=== PATIENT | male | born 1945 | race Caucasian/White ===

== ENCOUNTER 2017-06-23 19:37 | Inpatient (IN) | payer MEDICARE ==
[2017-06-23 20:42] LABS: Prothrombin Time 13.6 SEC (12.0-14.7)
[2017-06-23 21:05] LABS: CKMB 3.3 ng/mL (0-6.6); Troponin I 0.202 ng/mL (< 0.028)
[2017-06-23] MEDS ORDERED: Ondansetron HCl/PF 4 MG/2 ML Vial IVP PRN ×2 (21:47→23:23)
[2017-06-23] MEDS ORDERED: Ondansetron ODT 4 MG TAB SL PRN (21:47)
[2017-06-23] MEDS ORDERED: Acetaminophen 325 MG TAB PO PRN (21:47)
[2017-06-23 22:36] VITALS: BMI 31.6
[2017-06-23] MEDS ORDERED: Acetaminophen 500 MG TAB PO PRN (23:23)
[2017-06-23] MEDS ORDERED: Ondansetron ODT 4 MG TAB PO PRN (23:23)
[2017-06-23] MEDS ORDERED: hydrALAZINE 20 MG/ML VIAL SLOW IVP PRN (23:23)
[2017-06-23] MEDS ORDERED: cloNIDine 0.1 MG TAB PO PRN (23:23)
[2017-06-23 23:43] LABS: Troponin I 0.273 ng/mL (< 0.028)
--- NOTE | 2017-06-24 01:44 | HP ---
PRIMARY CARE PROVIDER: Epifanio Mcleod M.D. CHIEF COMPLAINT: Shortness of breath and chest pain. HISTORY OF PRESENT ILLNESS: This is a 72-year-old male who presented to [facility] after initially presenting to the emergency room with shortness of breath that began in the afternoon on 11/07/20142017. The patient states he had intermittent episodes of chest pain a nd shortness of breath pausing his activity resting with eventual resolution. The patient states he has noticed these episodes over the last 24-48 hours, usually resting relieving his symptoms. The pa tient states in the last 24 hours, he had excruciating pain between his shoulder blades causing him t o stop his activities. The patient states he has been fairly sedentary, using a computer and sitting for many hours during the day. The patient denied any recent travel history, trauma, injury or rece nt surgeries. The patient does admit to bilateral lower extremity edema which is chronic; however, h e has had minimal response to his chronic Lasix therapy with the right lower extremity being larger t mahoney the left lower extremity. Patient admits to remote history of pulmonary embolus after knee surge ry in the , treated with Coumadin for approximately 1 year. The patient denies any recent walker e to his activity level other than less activity and more sitting or doing computer work. Patient de nies current smoking, quitting tobacco use in the . The patient did admit to a central chest pr essure and pain causing him to look up his symptoms on the Internet concerning him for possible heart attack. The patient presented to the emergency room and denied taking any home medications for reli ef. Patient states he underwent left heart catheterization approximately 3 years prior to this evalu ation showing a 40% blockage in the obtuse marginal branch. The patient states he was medically vanessa ged and has been compliant with his medication regimen. In the emergency room, patient underwent CT angiogram of the chest showing bilateral pulmonary embolus with large embolus with near-complete obst ruction to the left lower lobe and portions of the left upper lobe. Multiple right lower lobe emboli noted. The patient received Lovenox 1 mg/kg subcutaneously in the Emergency Room and was transferre d to [facility] for further evaluation. PAST MEDICAL HISTORY: 1. History of angioedema secondary to XIOMARA inhibitors, resolved. 2. Obstructive sleep apnea. 3. Remote tobacco use. 4. Hyperlipidemia. 5. Hypertension. 6. History of gout. 7. Question of asthma. 8. Coronary artery disease with mild 40% obtuse marginal 1 occlusion. 9. Chronic lower extremity edema. PAST SURGICAL HISTORY: 1. Status post bilateral shoulder repair. 2. Status post left knee arthroscopy. 3. Status post cardiac catheterization. 4. Status post vein stripping of the left lower extremity. 5. Status post bursectomy of the right elbow with associated Staphylococcus infection. CURRENT MEDICATIONS: 1. Ventolin HFA 2 puffs inhaled q.4-6 hours p.r.n. 2. Allopurinol 100 mg 1 tab p.o. daily. 3. Norvasc 5 mg 1 tablet p.o. daily. 4. Aspirin 325 mg one tablet p.o. daily. 5. Lipitor 20 mg one tablet p.o. daily. 6. Pepcid 20 mg p.o. b.i.d. 7. Lasix 40 mg p.o. b.i.d. 8. Plaquenil 200 mg p.o. b.i.d. ALLERGIES: XIOMARA INHIBITORS and ARBs. FAMILY HISTORY: Mother with Alzheimer's dementia. SOCIAL HISTORY: Patient resides in [place], [place]. Works part-time at a liquor store. Drinks up t o 5 alcoholic beverages daily. No current tobacco or illicit drug use. REVIEW OF SYSTEMS: The following complete review of systems was negative, unless otherwise mentioned in the HPI or below: Constitutional: Weight loss or gain, ability to conduct usual activities. Skin: Rash, itching. Eyes: Double vision, pain. ENT/Mouth: Nose bleeding, neck stiffness, pain, tenderness. Cardiovascular: Palpitations, dyspnea on exertion, orthopnea. Respiratory: Shortness of breath, wheezing, cough, hemoptysis, fever or night sweats. Gastrointestinal: Poor appetite, abdominal pain, heartburn, nausea, vomiting, constipation, or diarr hea. Genitourinary: Urgency, frequency, dysuria, nocturia. Musculoskeletal: Pain, swelling. Neurologic/Psychiatric: Anxiety, depression. Allergy/Immunologic: Skin rash, bleeding tendency. Otherwise negative except as stated per HPI. PHYSICAL EXAMINATION: VITAL SIGNS: On admission, blood pressure 138/84, pulse 119, temperature 97.5 degrees Fahrenheit, re spiratory rate 20, O2 saturation 97% on 3 liters per minute by nasal cannula. GENERAL APPEARANCE: This is a 72-year-old female, alert and oriented x3, pleasant, in no a cute distress. HEENT: Pupils are equal, round, and reactive to light and accommodation. Extraocular muscles are in tact. No scleral icterus, no conjunctival injection. Nares patent. OP is clear. Teeth in fair rep air. NECK: Supple, no cervical adenopathy, no thyromegaly, no carotid bruits, no JVD appreciated. Cervic al spine with full active and passive range of motion. CHEST: Lungs are clear to auscultation bilaterally. CARDIOVASCULAR: S1, S2 with distant heart sounds. ABDOMEN: Obese, soft, nontender, nondistended. Bowel sounds are positive in all four quadrants. Th ere is no hepatosplenomegaly, no abdominal bruits, no rebound or guarding appreciated. EXTREMITIES: Bilateral pitting edema to the proximal shins. Pulses palpable distally at the dorsali s pedis, posterior tibial, and popliteal arteries bilaterally. Capillary refill less than 2 seconds. No calf tenderness elicited. No palpable cords. NEUROLOGIC: Cranial nerves II-XII are grossly intact. No focal or lateralizing signs appreciated. PERTINENT LABORATORY AND X-RAY FINDINGS: Sodium 141, potassium 3.7, chloride 100, CO2 of 24, anion g ap 21, BUN 28, creatinine 1.23 with estimated GFR 58, glucose 106, calcium 10.3, AST 38, ALT of 25, a lkaline phosphatase 114, troponin I ranged between 0.073-0.202. BNP 47. CBC showed a white blood ce ll count of 8.5, hemoglobin 14, hematocrit 42, platelet count 228 with 71% neutrophils. PT 13.6, INR 1.0, PTT 35.0. Portable chest x-ray dated 06/23/2017 showed cardiomegaly without acute process. CT angiogram of the chest dated 06/23/2017 showed pulmonary emboli bilaterally with large embolus with near-complete obstruction to the left upper and lower lobe. Right lower lobe emboli noted. EKG date d 06/23/2017 by my interpretation shows sinus mechanism with heart rates in the 90s. R-wave progress ion noted in the precordial leads. ST-T wave changes noted in leads V3 through V6. Right bundle-bra nch block pattern favored. ASSESSMENT: 1. Acute/subacute bilateral pulmonary emboli. The patient will be admitted to the telemetry unit. We will continue Lovenox 1 mg/kg subcutaneously q.12 hours. We will obtain 2D transthoracic echocard iogram for valvular function and to assess for intracardiac thrombus. Check bilateral lower extremit y venous Doppler study to rule out thrombus. Continue oxygen supplementation to maintain O2 saturati ons greater than or equal to 90%. 2. Elevated troponin I. Suspect secondarily to #1. No current evidence to suggest acute coronary s yndrome. Continue serial monitoring. 3. Chronic kidney disease stage 2. Avoid nephrotoxic agents and CONTRAST MEDIA. Repeat creatinine in the a.m. 4. Hypertension. We will resume home antihypertensive regimen and monitor clinical response. 5. Coronary artery disease. Chronic and stable. Resume home regimen to include aspirin. Resume Li pitor 20 mg p.o. daily. 6. Prophylaxis. Sequential compression devices while in bed. Pepcid 20 mg p.o. b.i.d. 7. Code status is FULL. Surrogate medical decision maker is King Queen.
[2017-06-24 05:44] LABS: ALT (SGPT) 20 U/L (8-55); AST (SGOT) 27 U/L (5-34); Albumin 3.7 g/dL (3.4-4.8); Alkaline Phosphatase 95 U/L (40-150); Anion Gap 14 mmol/L (10-20); BUN (Urea Nitrogen) 23 mg/dL (8.4-25.7); Bilirubin, Total 0.6 mg/dL (0.2-1.2); Calc. Creatinine Clearance 104 mL/min (70-130); Calcium 10.1 mg/dL (7.8-10.44); Carbon Dioxide 26 mmol/L (23-31); Chloride 104 mmol/L (98-107); Estimated GFR-MDRD 72; Globulin 2.9 g/dL (2.4-3.5); Glucose 94 mg/dL (83-110); Potassium 3.9 mmol/L (3.5-5.1); Protein, Total 6.6 g/dL (5.8-8.1); Sodium 140 mmol/L (136-145)
[2017-06-24 06:05] LABS: Band 1 % (5-11); Eosinophils 4 % (0-10); Hemoglobin 12.4 g/dL (14.0-18.0); Lymphocytes 15 % (21-51); MDiff Complete? YES; Macrocytosis SLIGHT = 6-15 cells (100X) (0-5/hpf); Mean Corpuscular HGB CONC 32.9 g/dL (32.0-36.0); Mean Corpuscular Hemoglobin 31.5 pg (27.0-31.0); Mean Corpuscular Volume 95.6 fl (80.0-94.0); Mean Platelet Volume 7.1 fL (7.4-10.4); Monocytes 12 % (0-10); Neutrophil 68 % (42-75); PLT Morphology Comment Appears Adequate; Platelet Count 218 thou/uL (130-400); RBC Distribution Width 13.4 % (11.5-14.5); Red Blood Cell (RBC) Count 3.93 mill/uL (4.70-6.10); White Blood Cell (WBC) Count 5.5 thou/uL (4.8-10.8)
[2017-06-24] MEDS ORDERED: Loperamide HCl 2 MG CAP PO PRN (07:39)
[2017-06-24] MEDS ORDERED: Diabetic Tussin 200 MG/10 ML UDCUP PO PRN (07:39)
[2017-06-24] MEDS ORDERED: Eucerin (Mineral Oil/Petrolatum,White) 30 gm Jar TOP PRN (07:39)
[2017-06-24] MEDS ORDERED: Artificial Tears 18 DROP/0.9 ML EA EYE PRN (07:39)
[2017-06-24] MEDS ORDERED: Mag-Al 1200 mg/1200 mg/30 ML UDCUP PO PRN (07:39)
[2017-06-24] MEDS ORDERED: Chloraseptic Spray 180 ml Bottle PO PRN (07:39)
[2017-06-24] MEDS ORDERED: HYDROcodone/Acetaminophen 5/325 mg Tablet PO PRN (07:39)
[2017-06-24] MEDS ORDERED: Milk Of Magnesia 30 ML UDCUP PO PRN (07:39)
[2017-06-24] MEDS ORDERED: Loratadine 10 MG TAB PO PRN (07:39)
[2017-06-24] MEDS ORDERED: Sodium Chloride 0.65% Nasal 44 ML BOT EA NARE PRN (07:39)
[2017-06-24] MEDS ORDERED: Senokot 8.6 MG TAB PO PRN (07:39)
[2017-06-24] MEDS ORDERED: Calcium Carbonate 500 MG ChewTAB PO PRN (07:39)
[2017-06-24] MEDS: Atorvastatin Calcium 20 MG TAB PO SCH (08:42)
[2017-06-24] MEDS: Leflunomide 10 mg Tablet PO SCH (08:42)
[2017-06-24] MEDS: Famotidine 20 MG TAB PO SCH ×2 (08:43→21:40)
[2017-06-24] MEDS: Hydroxychloroquine Sulfate 200 MG TAB PO SCH ×2 (08:43→21:40)
[2017-06-24] MEDS: Allopurinol 100 MG TAB PO SCH (08:43)
[2017-06-24] MEDS ORDERED: Enoxaparin Sodium 120 MG/0.8 ML SYRINGE SC SCH (09:00)
[2017-06-24] MEDS ORDERED: FLU VACC TS2017-18 (>65YR) 0.5 ML SYRINGE IM ONE (09:00)
--- NOTE | 2017-06-24 09:37 | PDOC.PN ---
- Subjective Encounter Start Date: 06/24/17 Encounter Start Time: 08:00 -: old records requested/rev Patient seen and examined. No new complaints. No overnight events - Objective Resuscitation Status: Resuscitation Status FULL:Full Resuscitation MAR Reviewed: Yes Vital Signs & Weight: Vital Signs (12 hours) Temp Pulse Resp BP Pulse Ox 06/24/17 07:45 97.8 F 87 18 100 06/24/17 07:38 97.8 F 87 18 153/94 H 100 06/24/17 04:00 97.7 F 86 14 126/74 100 06/23/17 23:30 98.1 F 99 18 106/66 99 06/23/17 23:23 99 06/23/17 22:35 97.5 F L 119 H 20 97 06/23/17 22:10 97.5 F L 119 H 20 138/84 97 Weight Weight 246 lb 14.4 oz I&O: 06/23/17 06/24/17 06/25/17 06:59 06:59 06:59 Intake Total 480 Output Total 350 Balance 130 Result Diagrams: 06/24/17 04:38 06/24/17 04:38 Radiology Reviewed by me: Yes (CT angio, US leg) EKG Reviewed by me: Yes Phys Exam - Physical Examination Constitutional: NAD HEENT: PERRLA, moist MMs, sclera anicteric Neck: no JVD, supple Respiratory: no wheezing, no rales, no rhonchi Cardiovascular: RRR, no significant murmur, no rub Gastrointestinal: soft, non-tender, no distention, positive bowel sounds obesity+ Musculoskeletal: no edema, pulses present Neurological: non-focal, normal sensation, moves all 4 limbs Lymphatic: no nodes Psychiatric: normal affect, A&O x 3 Skin: no rash, normal turgor Dx/Plan (1) Acute respiratory failure with hypoxia Code(s): J96.01 - ACUTE RESPIRATORY FAILURE WITH HYPOXIA Status: Acute (2) Bilateral pulmonary embolism Code(s): I26.99 - OTHER PULMONARY EMBOLISM WITHOUT ACUTE COR PULMONALE Status : Acute (3) Elevated troponin I level Code(s): R74.8 - ABNORMAL LEVELS OF OTHER SERUM ENZYMES Status: Acute Comment: (4) Asthma Code(s): J45.909 - UNSPECIFIED ASTHMA, UNCOMPLICATED Status: Chronic (5) CAD (coronary artery disease) Code(s): I25.10 - ATHSCL HEART DISEASE OF [place] CORONARY ARTERY W/O ANG PCTRS Status: Chronic (6) Dyslipidemia Code(s): E78.5 - HYPERLIPIDEMIA, UNSPECIFIED Status: Chronic (7) Gout Code(s): M10.9 - GOUT, UNSPECIFIED Status: Chronic (8) HTN (hypertension) Code(s): I10 - ESSENTIAL (PRIMARY) HYPERTENSION Status: Chronic Qualifiers: Comment: Follow serial trend after extubation, no XIOMARA/ARB's (9) NOAH (obstructive sleep apnea) Code(s): G47.33 - OBSTRUCTIVE SLEEP APNEA (ADULT) (PEDIATRIC) Status: Chronic (10) Obesity (BMI 30.0-34.9) Code(s): E66.9 - OBESITY, UNSPECIFIED Status: Chronic - Plan cont current plan of care * US leg to rule out DVT * echo * pulmonary consulted * continue lovenox * add warfarin * as pt has previous history of DVT and PE, he will need lifelong anticoagulation * monitor H & H, platelet, PT, INR * medication reviewed as below * symptomatic treatment. Review of Systems - Review of Systems Constitutional: negative: fever, chills, sweats, weakness, malaise, other ENT: negative: Ear Pain, Ear Discharge, Nose Pain, Nose Discharge, Nose Congestion, Mouth Pain, Mouth Swelling, Throat Pain, Throat Swelling, Other Respiratory: negative: Cough, Dry, Shortness of Breath, Hemoptysis, SOB with Excertion, Pleuritic Pain, Sputum, Wheezing Cardiovascular: negative: chest pain, palpitations, orthopnea, paroxysmal nocturnal dyspnea, edema, light headedness, other Gastrointestinal: negative: Nausea, Vomiting, Abdominal Pain, Diarrhea, Constipation, Melena, Hematochezia, Other Genitourinary: negative: Dysuria, Frequency, Incontinence, Hematuria, Retention , Other Musculoskeletal: negative: Neck Pain, Shoulder Pain, Arm Pain, Back Pain, Hand Pain, Leg Pain, Foot Pain, Other Skin: negative: Rash, Lesions, Octavio, Bruising, Other - Medications/Allergies Allergies/Adverse Reactions: Allergies Allergy/AdvReac Type Severity Reaction Status Date / Time XIOMARA Inhibitors Allergy Severe Verified 06/24/17 03:00 ARB-Angiotensin Receptor Allergy Severe Verified 06/24/17 03:00 Antagonist Medications: Current Medications Acetaminophen (Tylenol) 650 mg PO Q4H PRN PRN Reason: Headache/Fever or Mild Pain Hydrocodone Bitart/Acetaminophen ([place] 5/325) 1 tab PO Q4H PRN PRN Reason: Moderate Pain (4-6) Al Hydroxide/Mg Hydroxide (Maalox) 15 ml PO Q4H PRN PRN Reason: Heartburn or Indigestion Albuterol/Ipratropium (Duoneb) 3 ml NEB Q6H PRN PRN Reason: SOB &/or Wheezing Allopurinol (Zyloprim) 100 mg PO DAILY [facility] Last Admin: 06/24/17 08:43 Dose: 100 mg Artificial Tears (Tears Naturale) 0 drop EA EYE PRN PRN PRN Reason: Dry Eyes Atorvastatin Calcium (Lipitor) 20 mg PO DAILY [facility] Last Admin: 06/24/17 08:42 Dose: 20 mg Calcium Carbonate (Tums) 1,000 mg PO Q4H PRN PRN Reason: Heartburn or Indigestion Clonidine (Catapres) 0.1 mg PO Q4H PRN PRN Reason: Systolic BP > 180 Enoxaparin Sodium (Lovenox) 110 mg SC 0900,2100 [facility] Last Admin: 06/24/17 08:42 Dose: 110 mg Famotidine (Pepcid) 20 mg PO BID [facility] Last Admin: 06/24/17 08:43 Dose: 20 mg Guaifenesin (Robitussin Sf) 200 mg PO Q4H PRN PRN Reason: Cough Hydralazine HCl (Apresoline) 10 mg SLOW IVP Q4H PRN PRN Reason: Systolic BP > 180 Hydroxychloroquine Sulfate (Plaquenil) 200 mg PO BID [facility] Last Admin: 06/24/17 08:43 Dose: 200 mg Leflunomide (Arava) 20 mg PO DAILY [facility] Last Admin: 06/24/17 08:42 Dose: 20 mg Loperamide HCl (Imodium) 2 mg PO PRN PRN PRN Reason: Diarrhea/Loose Stools Loratadine (Claritin) 10 mg PO DAILYPRN PRN PRN Reason: Sinus Symptoms Magnesium Hydroxide (Milk Of Magnesium) 30 ml PO DAILYPRN PRN PRN Reason: Constipation Mineral Oil/White Petrolatum (Eucerin Cream) 0 gm TOP BIDPRN PRN PRN Reason: Dry Skin Mometasone Furoate (Asmanex Twisthaler) 1 puff INH 1830 JACINTO Ondansetron HCl (Zofran Odt) 4 mg PO Q6H PRN PRN Reason: Nausea/Vomiting Ondansetron HCl (Zofran) 4 mg IVP Q6H PRN PRN Reason: Nausea/Vomiting Phenol (Chloraseptic [place] 180 Ml Bot) 0 ml PO PRN PRN PRN Reason: Sore Throat Senna (Senokot) 2 tab PO HSPRN PRN PRN Reason: Constipation Sodium Chloride (Flush - Normal Saline) 10 ml IVF Q12HR [facility] Last Admin: 06/24/17 08:43 Dose: 10 ml Sodium Chloride (Flush - Normal Saline) 10 ml IVF PRN PRN PRN Reason: Saline Flush Sodium Chloride ([place] Nasal [place] 0.65%) 0 ml EA NARE QIDPRN PRN PRN Reason: Nasal Congestion Temazepam (Restoril) 15 mg PO HSPRN PRN PRN Reason: Insomnia Warfarin Sodium (Coumadin) 5 mg PO 1700 JACINTO
--- NOTE | 2017-06-24 09:42 | ULT ---
PRELIMINARY REPORT/[facility]/EMERGENCY AFTER HOURS PROCEDURE: EXAM: US Duplex Bilateral Lower Extremity Veins EXAM DATE/TIME: Exam ordered 06/24/2017 5:33 AM CLINICAL HISTORY: 72 years old, male; Signs and symptoms; Edema, localized; Lower extremity, bilateral; Patient HX: Dx: Pe, ble edema TECHNIQUE: Real-time ultrasound scan of the veins of the bilateral lower extremities with color Doppler flow, sp ectral waveform analysis and compression. COMPARISON: No relevant prior studies available. FINDINGS: Right deep veins: There is non-compressive clot within the distal RIGHT femoral vein and popliteal ve in with nearly absent flow on color Doppler and no augmentation. No DVT in the right common femoral, proximal and mid femoral veins. Calf veins are patent. Right superficial veins: No thrombus in the visualized right great saphenous vein. Left deep veins: Normal. No DVT in the left common femoral, femoral, proximal deep femoral, popliteal or calf veins. The veins demonstrate normal color flow, are normally compressible, with normal phasi c flow and/or augmentation response. Left superficial veins: Normal. No thrombus in the visualized left great saphenous vein. Soft tissues: There is swelling of the RIGHT lower extremity. No popliteal cyst. Other findings: Calf veins on the RIGHT are compressible and demonstrate flow. IMPRESSION: 1. Distal RIGHT femoral vein and popliteal vein DVT as above. 2. No LEFT DVT. Thank you for allowing us to participate in the care of your patient. Dictated and Authenticated by: Carlos Parekh MD 06/24/2017 6:30 AM Central Time ([place] & [place]) FINAL REPORT BILATERAL LOWER EXTREMITY VENOUS DUPLEX SONOGRAM: DATE: 06/24/17. TIME: 0535 hours. HISTORY: Bilateral leg pain and edema. FINDINGS: The findings agree with the preliminary report by Dr. Parekh from [facility]. Thrombus with n oncompressibility involves the right femoral and popliteal veins. Nurse Vince was notified by the senior partner at the time of the exam. POS: ALEXX
[2017-06-24] MEDS: Acetaminophen 325 MG TAB PO PRN ×2 (10:50→22:02)
--- NOTE | 2017-06-24 14:39 | CON ---
DATE OF CONSULTATION: 06/24/2017 CONSULTING PHYSICIAN: Hospitalist group. REASON FOR CONSULTATION: Pulmonary embolism. HISTORY OF PRESENT ILLNESS: Mr. Farley is a 72-year-old male who presented to the emergency room last night with a presyncopal type episode after bending over a couple times at his home. He has been fe eling different for the last couple of weeks, stating that he has had a sensation between his scapula . He had been doing fine yesterday morning. He then bent over and felt like he was going to pass ou t. He then researched on [employer] and thought that he was having a heart attack and subsequently prese nted to the hospital. The information that I have is obtained from talking with the patient and tal rahman notes. The patient underwent CT pulmonary angiogram, which showed bilateral severe pulmonary emboli. He was not hypotensive. He has been placed on anticoagulation. The patient had a history of DVT and pulmonary embolism back in the 1969 for which he took Coumadin f or 1 year. PAST MEDICAL HISTORY: 1. Angioedema. 2. DVT/PE. 3. Obstructive sleep apnea. 4. Chronic obstructive pulmonary disease. 5. Hypertension. 6. Gout. 7. Coronary artery disease. 8. Lower extremity edema. PAST SURGICAL HISTORY: 1. Bilateral shoulder repair. 2. Arthroscopy. 3. Cardiac catheterization. 4. Vein stripping left lower extremity. MEDICATIONS PRIOR TO ADMISSION: Ventolin, allopurinol, Norvasc, aspirin, Lipitor, Pepcid, Lasix, Rob quenil. ALLERGIES: XIOMARA INHIBITORS and ANGIOTENSIN RECEPTOR BLOCKERS. FAMILY MEDICAL HISTORY: Remarkable for Alzheimer's disease. SOCIAL HISTORY: He smoked up until 1986. Drinks up to 5 alcoholic beverages daily. He lives near [facility]. He is retired from car dealership. REVIEW OF SYSTEMS: Twelve point review of systems is negative expect from that mentioned in history of present illness. PHYSICAL EXAMINATION: VITAL SIGNS: Temperature 97.8, pulse 87, respirations 18, O2 sat 100% on 3 liters, blood pressure 15 3/94. GENERAL: He is awake and alert and in no distress. HEENT: Pupils react. Sclerae anicteric. Oropharynx clear. NECK: Without adenopathy or JVD. CARDIOVASCULAR: S1, S2 regular. No audible murmur. LUNGS: Clear without wheezing or rhonchi. ABDOMEN: Soft, nontender, no hepatosplenomegaly. EXTREMITIES: Without clubbing, cyanosis, or edema. There is no skin changes. NEUROLOGIC: Moves all 4 extremities without difficulty. He has no palpable lymphadenopathy. LABORATORY DATA: White blood cell count 5.5, hematocrit 37.5, platelet count 218. INR 1.0. Sodium 140, potassium 3.9, chloride 104, CO2 26, BUN 23, creatinine 1.0, glucose 94. IMAGING: Reviewed a CT scan in detail, he has bilateral pulmonary emboli. The Doppler of lower extr emities showed a distal right femoral vein and popliteal vein DVT. ASSESSMENT: Deep venous thrombosis/pulmonary embolism. RECOMMENDATIONS: He will need anticoagulation lifelong. I would go ahead and switch him over to Ashtyn michael and start at 10 mg twice daily beginning tonight and leave that in place for 1 week before switc jose him over 5 mg twice daily, thereafter. He should be okay to be discharged about 48 hours.
[2017-06-24] MEDS ORDERED: Warfarin Sodium 5 MG TAB PO SCH (17:00)
[2017-06-24] MEDS: Mometasone Furoate 120 PUFF 220 MCG INH SCH (19:57)
[2017-06-24] MEDS: Apixaban 5 MG TAB PO SCH (21:39)
[2017-06-24] MEDS: Temazepam 15 MG CAP PO PRN (23:21)
[2017-06-25 05:10] LABS: Hemoglobin 12.1 g/dL (14.0-18.0); Platelet Count 227 thou/uL (130-400)
[2017-06-25] MEDS: Apixaban 5 MG TAB PO SCH ×2 (09:15→20:38)
[2017-06-25] MEDS: Famotidine 20 MG TAB PO SCH ×2 (09:16→20:38)
[2017-06-25] MEDS: Atorvastatin Calcium 20 MG TAB PO SCH (09:16)
[2017-06-25] MEDS: Hydroxychloroquine Sulfate 200 MG TAB PO SCH ×2 (09:16→20:38)
[2017-06-25] MEDS: Allopurinol 100 MG TAB PO SCH (09:16)
[2017-06-25] MEDS: Leflunomide 10 mg Tablet PO SCH (09:16)
[2017-06-25] MEDS: Acetaminophen 325 MG TAB PO PRN ×2 (10:18→20:38)
--- NOTE | 2017-06-25 10:47 | PDOC.PN ---
- Subjective Encounter Start Date: 06/25/17 Encounter Start Time: 08:50 Patient seen and examined. No new complaints. No overnight events - Objective Resuscitation Status: Resuscitation Status FULL:Full Resuscitation MAR Reviewed: Yes Vital Signs & Weight: Vital Signs (12 hours) Temp Pulse Resp BP Pulse Ox 06/25/17 06:52 98 F 86 16 100 06/25/17 06:51 98 F 86 16 138/87 100 06/25/17 04:29 92 18 96 06/25/17 04:00 97.6 F 88 18 151/98 H 97 06/25/17 00:00 98.4 F 94 18 126/80 94 L Weight Weight 246 lb 14.4 oz I&O: 06/24/17 06/25/17 06/26/17 06:59 06:59 06:59 Intake Total 480 1920 Output Total 350 200 Balance 130 1720 Result Diagrams: 06/25/17 04:36 06/25/17 04:36 Radiology Reviewed by me: Yes EKG Reviewed by me: Yes (nsr) Phys Exam - Physical Examination Constitutional: NAD HEENT: PERRLA, moist MMs, sclera anicteric Neck: no JVD, supple Respiratory: no wheezing, no rales, no rhonchi Cardiovascular: RRR, no significant murmur, no rub Gastrointestinal: soft, non-tender, no distention, positive bowel sounds Musculoskeletal: no edema, pulses present Neurological: non-focal, normal sensation, moves all 4 limbs Lymphatic: no nodes Psychiatric: normal affect, A&O x 3 Skin: no rash, normal turgor Dx/Plan (1) Bilateral pulmonary embolism Code(s): I26.99 - OTHER PULMONARY EMBOLISM WITHOUT ACUTE COR PULMONALE Status : Acute (2) Elevated troponin I level Code(s): R74.8 - ABNORMAL LEVELS OF OTHER SERUM ENZYMES Status: Acute Comment: (3) Asthma Code(s): J45.909 - UNSPECIFIED ASTHMA, UNCOMPLICATED Status: Chronic (4) CAD (coronary artery disease) Code(s): I25.10 - ATHSCL HEART DISEASE OF [place] CORONARY ARTERY W/O ANG PCTRS Status: Chronic (5) Dyslipidemia Code(s): E78.5 - HYPERLIPIDEMIA, UNSPECIFIED Status: Chronic (6) Gout Code(s): M10.9 - GOUT, UNSPECIFIED Status: Chronic (7) HTN (hypertension) Code(s): I10 - ESSENTIAL (PRIMARY) HYPERTENSION Status: Chronic Qualifiers: Comment: Follow serial trend after extubation, no XIOMARA/ARB's (8) NOAH (obstructive sleep apnea) Code(s): G47.33 - OBSTRUCTIVE SLEEP APNEA (ADULT) (PEDIATRIC) Status: Chronic (9) Obesity (BMI 30.0-34.9) Code(s): E66.9 - OBESITY, UNSPECIFIED Status: Chronic (10) Acute deep vein thrombosis (DVT) of right peroneal vein Code(s): I82.491 - ACUTE EMBOLISM AND THROMBOSIS OF DEEP VEIN OF R LOW EXTREM Status: Acute (11) Acute respiratory failure with hypoxia Code(s): J96.01 - ACUTE RESPIRATORY FAILURE WITH HYPOXIA Status: Acute - Plan cont current plan of care * continue anticoagulation as ordered * echo pending * medication reviewed as below * symptomatic treatment * wean off oxygen. * expecting discharge tomorrow Review of Systems - Review of Systems ENT: negative: Ear Pain, Ear Discharge, Nose Pain, Nose Discharge, Nose Congestion, Mouth Pain, Mouth Swelling, Throat Pain, Throat Swelling, Other Respiratory: negative: Cough, Dry, Shortness of Breath, Hemoptysis, SOB with Excertion, Pleuritic Pain, Sputum, Wheezing Cardiovascular: negative: chest pain, palpitations, orthopnea, paroxysmal nocturnal dyspnea, edema, light headedness, other Gastrointestinal: negative: Nausea, Vomiting, Abdominal Pain, Diarrhea, Constipation, Melena, Hematochezia, Other Genitourinary: negative: Dysuria, Frequency, Incontinence, Hematuria, Retention , Other Musculoskeletal: negative: Neck Pain, Shoulder Pain, Arm Pain, Back Pain, Hand Pain, Leg Pain, Foot Pain, Other Skin: negative: Rash, Lesions, Octavio, Bruising, Other - Medications/Allergies Allergies/Adverse Reactions: Allergies Allergy/AdvReac Type Severity Reaction Status Date / Time XIOMARA Inhibitors Allergy Severe Verified 06/24/17 03:00 ARB-Angiotensin Receptor Allergy Severe Verified 06/24/17 03:00 Antagonist Medications: Current Medications Acetaminophen (Tylenol) 650 mg PO Q4H PRN PRN Reason: Headache/Fever or Mild Pain Last Admin: 06/25/17 10:18 Dose: 650 mg Hydrocodone Bitart/Acetaminophen ([place] 5/325) 1 tab PO Q4H PRN PRN Reason: Moderate Pain (4-6) Al Hydroxide/Mg Hydroxide (Maalox) 15 ml PO Q4H PRN PRN Reason: Heartburn or Indigestion Albuterol/Ipratropium (Duoneb) 3 ml NEB Q6H PRN PRN Reason: SOB &/or Wheezing Last Admin: 06/25/17 04:29 Dose: 3 ml Allopurinol (Zyloprim) 100 mg PO DAILY [facility] Last Admin: 06/25/17 09:16 Dose: 100 mg Apixaban (Eliquis) 10 mg PO BID [facility] Last Admin: 06/25/17 09:15 Dose: 10 mg Artificial Tears (Tears Naturale) 0 drop EA EYE PRN PRN PRN Reason: Dry Eyes Atorvastatin Calcium (Lipitor) 20 mg PO DAILY [facility] Last Admin: 06/25/17 09:16 Dose: 20 mg Calcium Carbonate (Tums) 1,000 mg PO Q4H PRN PRN Reason: Heartburn or Indigestion Clonidine (Catapres) 0.1 mg PO Q4H PRN PRN Reason: Systolic BP > 180 Famotidine (Pepcid) 20 mg PO BID [facility] Last Admin: 06/25/17 09:16 Dose: 20 mg Guaifenesin (Robitussin Sf) 200 mg PO Q4H PRN PRN Reason: Cough Hydralazine HCl (Apresoline) 10 mg SLOW IVP Q4H PRN PRN Reason: Systolic BP > 180 Hydroxychloroquine Sulfate (Plaquenil) 200 mg PO BID [facility] Last Admin: 06/25/17 09:16 Dose: 200 mg Leflunomide (Arava) 20 mg PO DAILY [facility] Last Admin: 06/25/17 09:16 Dose: 20 mg Loperamide HCl (Imodium) 2 mg PO PRN PRN PRN Reason: Diarrhea/Loose Stools Loratadine (Claritin) 10 mg PO DAILYPRN PRN PRN Reason: Sinus Symptoms Magnesium Hydroxide (Milk Of Magnesium) 30 ml PO DAILYPRN PRN PRN Reason: Constipation Mineral Oil/White Petrolatum (Eucerin Cream) 0 gm TOP BIDPRN PRN PRN Reason: Dry Skin Mometasone Furoate (Asmanex Twisthaler) 1 puff INH 1830 [facility] Last Admin: 06/24/17 19:57 Dose: 1 puff Ondansetron HCl (Zofran Odt) 4 mg PO Q6H PRN PRN Reason: Nausea/Vomiting Ondansetron HCl (Zofran) 4 mg IVP Q6H PRN PRN Reason: Nausea/Vomiting Phenol (Chloraseptic [place] 180 Ml Bot) 0 ml PO PRN PRN PRN Reason: Sore Throat Senna (Senokot) 2 tab PO HSPRN PRN PRN Reason: Constipation Sodium Chloride (Flush - Normal Saline) 10 ml IVF Q12HR [facility] Last Admin: 06/25/17 09:16 Dose: 10 ml Sodium Chloride (Flush - Normal Saline) 10 ml IVF PRN PRN PRN Reason: Saline Flush Sodium Chloride ([place] Nasal [place] 0.65%) 0 ml EA NARE QIDPRN PRN PRN Reason: Nasal Congestion Temazepam (Restoril) 15 mg PO HSPRN PRN PRN Reason: Insomnia Last Admin: 06/24/17 23:21 Dose: 15 mg
--- NOTE | 2017-06-25 11:29 | PRG ---
DATE OF SERVICE: 06/25/2017 Mr. Farley is doing better today. He has no complaints. PHYSICAL EXAMINATION: VITAL SIGNS: Temperature is 98, pulse 86, respirations 16, O2 sat 100% on 2 liters, blood pressure 1 38/87. HEENT: Unremarkable. NECK: No JVD. CHEST: Clear. CARDIAC: S1 and S2 regular. ABDOMEN: Soft. EXTREMITIES: No edema. LABORATORY DATA: Hematocrit 37.5, platelet count 227, creatinine 0.9. ASSESSMENT: Pulmonary embolism. PLAN: Continue the Eliquis indefinitely. The patient should be able to go home by tomorrow. He twin l follow up with Dr. Epifanio Mcleod as an outpatient.
[2017-06-25] MEDS: Mometasone Furoate 120 PUFF 220 MCG INH SCH (18:51)
[2017-06-25] MEDS: Temazepam 15 MG CAP PO PRN (20:38)
[2017-06-26] MEDS: Leflunomide 10 mg Tablet PO SCH (08:46)
[2017-06-26] MEDS: Famotidine 20 MG TAB PO SCH (08:46)
[2017-06-26] MEDS: Hydroxychloroquine Sulfate 200 MG TAB PO SCH (08:46)
[2017-06-26] MEDS: Allopurinol 100 MG TAB PO SCH (08:46)
[2017-06-26] MEDS: Acetaminophen 325 MG TAB PO PRN (08:46)
[2017-06-26] MEDS: Apixaban 5 MG TAB PO SCH (08:46)
[2017-06-26] MEDS: Atorvastatin Calcium 20 MG TAB PO SCH (08:47)
--- NOTE | 2017-06-26 09:32 | PDOC.PULPN ---
Progress Note: Subj/Obj - Subjective Date: 06/26/17 Time: 09:30 Narrative: the patient is doing well and has no acute complaints. - ROS All systems: reviewed and no additional remarkable complaints except as stated - Objective Allergies/Adverse Reactions: Allergies Allergy/AdvReac Type Severity Reaction Status Date / Time XIOMARA Inhibitors Allergy Severe Verified 06/24/17 03:00 ARB-Angiotensin Receptor Allergy Severe Verified 06/24/17 03:00 Antagonist Medications: Current Medications Acetaminophen (Tylenol) 650 mg PO Q4H PRN PRN Reason: Headache/Fever or Mild Pain Last Admin: 06/26/17 08:46 Dose: 650 mg Hydrocodone Bitart/Acetaminophen ([place] 5/325) 1 tab PO Q4H PRN PRN Reason: Moderate Pain (4-6) Al Hydroxide/Mg Hydroxide (Maalox) 15 ml PO Q4H PRN PRN Reason: Heartburn or Indigestion Albuterol/Ipratropium (Duoneb) 3 ml NEB Q6H PRN PRN Reason: SOB &/or Wheezing Last Admin: 06/25/17 04:29 Dose: 3 ml Allopurinol (Zyloprim) 100 mg PO DAILY [facility] Last Admin: 06/26/17 08:46 Dose: 100 mg Apixaban (Eliquis) 10 mg PO BID [facility] Last Admin: 06/26/17 08:46 Dose: 10 mg Artificial Tears (Tears Naturale) 0 drop EA EYE PRN PRN PRN Reason: Dry Eyes Atorvastatin Calcium (Lipitor) 20 mg PO DAILY [facility] Last Admin: 06/26/17 08:47 Dose: 20 mg Calcium Carbonate (Tums) 1,000 mg PO Q4H PRN PRN Reason: Heartburn or Indigestion Clonidine (Catapres) 0.1 mg PO Q4H PRN PRN Reason: Systolic BP > 180 Famotidine (Pepcid) 20 mg PO BID [facility] Last Admin: 06/26/17 08:46 Dose: 20 mg Guaifenesin (Robitussin Sf) 200 mg PO Q4H PRN PRN Reason: Cough Hydralazine HCl (Apresoline) 10 mg SLOW IVP Q4H PRN PRN Reason: Systolic BP > 180 Hydroxychloroquine Sulfate (Plaquenil) 200 mg PO BID [facility] Last Admin: 06/26/17 08:46 Dose: 200 mg Leflunomide (Arava) 20 mg PO DAILY [facility] Last Admin: 06/26/17 08:46 Dose: 20 mg Loperamide HCl (Imodium) 2 mg PO PRN PRN PRN Reason: Diarrhea/Loose Stools Loratadine (Claritin) 10 mg PO DAILYPRN PRN PRN Reason: Sinus Symptoms Magnesium Hydroxide (Milk Of Magnesium) 30 ml PO DAILYPRN PRN PRN Reason: Constipation Mineral Oil/White Petrolatum (Eucerin Cream) 0 gm TOP BIDPRN PRN PRN Reason: Dry Skin Mometasone Furoate (Asmanex Twisthaler) 1 puff INH 1830 [facility] Last Admin: 06/25/17 18:51 Dose: 1 puff Ondansetron HCl (Zofran Odt) 4 mg PO Q6H PRN PRN Reason: Nausea/Vomiting Ondansetron HCl (Zofran) 4 mg IVP Q6H PRN PRN Reason: Nausea/Vomiting Phenol (Chloraseptic [place] 180 Ml Bot) 0 ml PO PRN PRN PRN Reason: Sore Throat Senna (Senokot) 2 tab PO HSPRN PRN PRN Reason: Constipation Sodium Chloride (Flush - Normal Saline) 10 ml IVF Q12HR [facility] Last Admin: 06/26/17 08:46 Dose: 10 ml Sodium Chloride (Flush - Normal Saline) 10 ml IVF PRN PRN PRN Reason: Saline Flush Sodium Chloride ([place] Nasal [place] 0.65%) 0 ml EA NARE QIDPRN PRN PRN Reason: Nasal Congestion Temazepam (Restoril) 15 mg PO HSPRN PRN PRN Reason: Insomnia Last Admin: 06/25/17 20:38 Dose: 15 mg MAR Reviewed: Yes Vital Signs: Vital Signs Temp 98.2 F 06/26/17 07:07 Pulse 92 06/26/17 07:07 Resp 18 06/26/17 07:07 BP 132/91 H 06/26/17 07:06 Pulse Ox 99 06/26/17 07:07 Intake & Output 06/25/17 06/26/17 06/26/17 18:59 06:59 18:59 Intake Total 1680 480 Balance 1680 480 Intake: Oral 1680 480 Other: Voiding Method Urinal Urinal # Unmeasured Voids 3 Progress Note: Exam - Physical Exam Constitutional: NAD HEENT: PERRLA, sclera anicteric Neck: no nodes, no JVD, supple, full ROM Cardiovascular: RRR, no significant murmur, no rub Respiratory: clear to auscultation bilaterally Gastrointestinal: soft, non-tender, no distention, positive bowel sounds Musculoskeletal: no edema, pulses present Neurological: non-focal, normal sensation, moves all 4 limbs Lymphatic: no nodes Psychiatric: normal affect, A&O x 3 Skin: no rash - Labs Result Diagrams: 06/25/17 04:36 06/25/17 04:36 Progress Note: A/P - Problems (1) Bilateral pulmonary embolism Current Visit: Yes Status: Acute Code(s): I26.99 - OTHER PULMONARY EMBOLISM WITHOUT ACUTE COR PULMONALE (2) Deep vein thrombosis (DVT) of popliteal vein of right lower extremity Current Visit: Yes Status: Acute Code(s): I82.431 - ACUTE EMBOLISM AND THROMBOSIS OF RIGHT POPLITEAL VEIN - Plan Plan: This patient can be discharged today He should complete 7 days of Eliquis, 10 mg twice a day. After that, he should be on Eliquis 5 mg twice daily indefinitely. He will be following up with Dr. Epifanio Mcleod.The patient has my card if he wishes to see me at some point in the future
--- NOTE | 2017-06-26 11:00 | DIS ---
PRIMARY CARE PHYSICIAN: Epifanio Mcleod M.D. DATE OF ADMISSION: 06/23/2017 DATE OF DISCHARGE: 06/26/2017 DISCHARGE DISPOSITION: Home. PRIMARY DISCHARGE DIAGNOSES: 1. Acute respiratory failure with hypoxia, resolved. 2. Bilateral pulmonary embolism. 3. Deep vein thrombosis of the right popliteal vein. 4. Demand ischemia of myocardium. SECONDARY DISCHARGE DIAGNOSES: Obstructive sleep apnea, obesity with BMI 31, hypertension, gout, dyslipidemia, coronary artery disease, asthma. PRIMARY PROCEDURE/OPERATION: None. RADIOLOGICAL INVESTIGATION: Echocardiography during this admission showed EF 50 -55%, moderately enlarged right ventricle, severe tricuspid regurgitation. CT angio was positive for bilateral pulmonary embolism. Chest x-ray was unremarkable. Ultrasound was positive for right popliteal vein deep vein thromboses. SIGNIFICANT LABS: WBC 5.5, hemoglobin 12.1, platelets 227. INR 1.0. Sodium 140, creatinine 1.02, LFT normal. Troponin 0.273. Stool for guaiac negative. DISCHARGE MEDICATIONS: Eliquis 10 mg p.o. b.i.d. for 5 more days, then 5 mg p.o. b.i.d., Ventolin HFA 2 puffs q.4 hourly p.r.n., allopurinol 100 mg p.o. daily, amlodipine 5 mg p.o. daily, Lipitor 20 mg p.o. daily, Pulmicort inhaler 2 puffs b.i.d., Lasix 40 mg p.o. b.i.d., Plaquenil 200 mg p.o. b.i.d., leflunomide 20 mg p.o. daily. CONTRAINDICATIONS: None. CODE STATUS: FULL CODE. INPATIENT CONSULTANTS: Dr. Valverde was following while in hospital. ALLERGIES: XIOMARA INHIBITOR and ARB. TEST RESULTS PENDING ON DISCHARGE: None. DISCHARGE PLAN: Post hospital, the patient will follow up with Dr. Epifanio Mcleod in 1 week. HOSPITAL COURSE: A 72-year-old male with the above-mentioned medical problems who was admitted by Dr. Herzog. Please see his H&P for further details. The patient was admitted for chest pain and shortness of breath. He was hypoxic initially. In the emergency room, he had CT angiogram, which showed bilateral pulmonary embolism. He was given Lovenox 1 mg per kg subcutaneous in the emergency room and he was admitted to Telemetry floor. We did ultrasound of lower extremity and it was positive for deep vein thrombosis in the popliteal vein on the right side. We did echocardiography which showed severe tricuspid regurgitation and the right ventricle dilated which was related with pulmonary embolism. Initially, we gave him Lovenox and subsequently, Dr. Valverde recommended to change to Eliquis therapy. We discussed with the patient about the risk and benefit of a newer anticoagulant therapy and patient agreed to continue with Eliquis therapy. While in hospital, he was given 2 days Eliquis therapy twice daily and now he will finish 5 more days of 10 mg twice daily after discharge and then he will resume 5 mg p.o. b.i.d., which was discussed with patient in detail. The rest of medications he will continue as per previous. The patient is on room air. He is saturating normal and he is ambulatory and without any complaints. The patient is seen and examined at bedside today. All review of systems reviewed with him and negative. PHYSICAL EXAMINATION: VITAL SIGNS: Currently, temperature 98.2, pulse 92, respiratory rate 18, saturation 99%, blood pressure 132/91, weight 246 pounds. GENERAL: The patient is currently alert, awake, no acute distress. HEAD: Normocephalic, atraumatic. EYES: Pupils are round, reactive to light. Extraocular muscle are intact. ENT: Oropharynx is within normal limits. Moist mucous membranes. No oral lesions. No pharyngeal erythema, no exudates. NECK: Supple, no JVD, no thyromegaly, no carotid bruits. LUNGS: Clear to auscultation without any rhonchi or rales. CARDIAC: S1, S2 regular without any murmur. ABDOMEN: Soft and benign. Obesity present. EXTREMITIES: No edema. NEUROLOGIC: Nonfocal examination. All new medication prescription given to his pharmacy. The patient is cleared for discharge by [facility] as well. Total time spent on discharge day more than 30 minutes to process this discharge. MARE
[2017-06-26 11:16] VITALS: BP 124/80; TEMP 97.9
== END 2017-06-26 11:33 | disposition home or self-care (01) | DRG 175 ==
LOC: ERS 19:37 → 2NO 21:46
PROVIDERS: ADMIT Family Medicine; ATTEND Family Medicine
DX: I26.99 Other pulmonary embolism without acute cor pulmonale (principal); J96.01 Acute respiratory failure with hypoxia; I82.432 Acute embolism and thrombosis of left popliteal vein; I24.8 Other forms of acute ischemic heart disease; I12.9 Hypertensive chronic kidney disease with stage 1 through stage 4 chronic kidney disease, or unspecified chronic kidney disease; I25.10 Atherosclerotic heart disease of native coronary artery without angina pectoris; N18.2 Chronic kidney disease, stage 2 (mild); G47.33 Obstructive sleep apnea (adult) (pediatric); E66.9 Obesity, unspecified; Z68.31 Body mass index [BMI] 31.0-31.9, adult; M10.9 Gout, unspecified; J45.909 Unspecified asthma, uncomplicated; Z23 Encounter for immunization
CPT/HCPCS: 36415; 80053; 82565; 85007; 85014; 85018; 85027; 85049; 85610; 85730; 90471; 90682; 93005; 93306; 93970; 94640; A4216; G0008; J1650; Q2036

== ENCOUNTER 2017-12-15 11:03 | Outpatient (CLI) | payer MEDICARE, OTHER | END 2017-12-15 11:04 | disposition home or self-care (01) | LOC: BICRAD 11:03 | PROVIDERS: ATTEND Physician Assistant | DX: M25.551 Pain in right hip (principal); M25.552 Pain in left hip | CPT/HCPCS: 72170 ==

== ENCOUNTER 2018-03-15 13:44 | Observation (INO) | payer MEDICARE, OTHER ==
[2018-03-15] MEDS ORDERED: PROVENTIL INHALER 6.7 G (200 INHALATIONS) INH PRN (16:09)
[2018-03-15 16:27] LABS: Troponin I Less than 0.010 ng/mL (< 0.028)
[2018-03-15 18:16] VITALS: BMI 30.1
--- NOTE | 2018-03-15 20:25 | HP ---
CHIEF COMPLAINT: Transfer from [place]. HISTORY OF PRESENT ILLNESS: The patient is a 73-year-old male who was admitted to this facility back in June at which time he had some bilateral pulmonary emboli. He had some right ventricular dila tation consequently, he did well and was discharged to home on oral Eliquis. Patient has continued t o do well with that and was in his usual state of health this morning. He awoke as he typically does on the Friday morning, drank half a pot of coffee and was preparing a late brunch. He had not eaten anything at that time. He subsequently developed a general feeling of listlessness with some mild l ightheadedness and some numbness in his hands. As he has a habit of doing, he checked his radial pul se and noted that he was having 3 beats and then a pause. Also, prominent in his symptomatology, was a feeling of some throat tightness. The patient reports he has had similar episodes in the past gene t were esophageal spasms and typically abated spontaneously. This episode was not as bad as his prev ious episodes. He specifically denied any chest pain or any shortness of breath throughout this epis ode. He presented to the emergency department in [place] where he was noted to be hypertensive and appeared a bit anxious. He received aspirin and nitroglycerin. The nitroglycerin he reports did rel ieve his esophageal spasm symptoms and ultimately his symptoms have all completely abated and he feel s completely at his baseline at this time. He had workup in [place], which included a D-dimer which was slightly elevated at 1.19. With that, he had a CT angio of the chest which revealed a small wed ge defect in the right middle lobe which was new from June. It could not be further differentiate d, but concerning for the possibility of a scar tissue from prior PE versus pulmonary infarction vers us infiltrate. The patient then received a dose of Rocephin. His EKG there only revealed some PVCs with some right bundle branch block, but no ischemic changes. Again, here, the patient reports he fe els like he is completely back to normal and has no symptoms at present. PAST MEDICAL HISTORY: Notable for the above-mentioned pulmonary emboli and DVT in June. PE is at that time were bilateral. Has a history of obstructive sleep apnea, remote tobacco abuse with some related COPD, hyperlipidemia, hypertension. His records indicate a history of gout and he is on allo purinol. He also reports a history of rheumatoid arthritis and he is on Plaquenil. He has a history of a full cardiac workup which he reports was about 4 years ago at this facility. I do not find any documentation of that, but he states he had one very small artery in the posterior circulation that was about 40% to occlude, the previous admission record indicates that was in obtuse marginal also hutton s some mild chronic lower extremity edema. PAST SURGICAL HISTORY: Bilateral shoulder repair, left knee arthroscopy. Prior heart catheterizatio n with vein stripping left lower extremity. Right elbow bursectomy secondary to Staph infection. FAMILY HISTORY: Mother had Alzheimer disease. SOCIAL HISTORY: The patient lives in [place], denies tobacco or drugs. He does drink several drink s per day. He is FULL CODE. He has a significant other who is his surrogate. REVIEW OF SYSTEMS: Ten system review was negative except for those things mentioned in the history o f present illness with the exception that he has had a recent small pruritic lesion on his left proxi mal wrist area. It seems to be resolving at this point. ALLERGIES: XIOMARA INHIBITORS which cause angioedema. The patient had an episode in which he had angioe lizzeth of the face and tongue, requiring intubation. CURRENT MEDICATIONS: Atorvastatin 40 mg every day, allopurinol 100 mg every day, Lasix 40 mg every d ay, amlodipine 5 mg every day, hydroxychloroquine 200 mg b.i.d., Pulmicort Flexhaler 2 puffs b.i.d., Ventolin inhaler 2 puffs as needed. PHYSICAL EXAMINATION: VITAL SIGNS: BP 171/91, pulse 78, respirations 13, temperature 97.9, O2 sat 100% on room air. GENERAL APPEARANCE: Age appropriate male, slightly obese. He is in no distress. He is awake, alert , oriented, pleasant, cooperative. HEENT: PERRL. No OP lesions. NECK: Supple and symmetric without lymphadenopathy, JVD, or carotid bruits. CARDIOVASCULAR: Regular rate and rhythm without murmurs, gallops or rubs. LUNGS: Clear to auscultation bilaterally with no wheezes or rales noted. ABDOMEN: Soft, nontender, nondistended. Has a small ventral hernia rather. EXTREMITIES: Warm and dry. He has palpable pulses. He does have some varicosities. LABORATORY DATA: White count 5.5, hemoglobin 12.9, platelets 293. Coags normal. D-dimer 1.19. Sod ium 139, potassium 4.3, chloride 100, BUN 16, creatinine is 1.01. Lactic acid is 2.1, calcium 10.6, AST 40, ALT is 27, troponin 0.016. BNP 31. Total protein 8.5, albumin 4.6, lipase 31. Chest x-ray shows borderline cardiomegaly. CT of the chest as noted above reveals the wedge shaped opacity in th e right middle lobe which is fairly peripheral. ASSESSMENT AND PLAN: 1. Constellation of symptoms experienced this morning seemed to most likely represent an episode of hypoglycemia and resulting in some paresthesias of the hands, some esophageal spasm and generalized l istlessness. The patient was at risk for this and that he was drinking a fair amount of coffee and c affeine without having eaten. His symptoms did subsequently resolved. 2. Abnormal CT of the chest. Strongly suspect this peripheral wedge shaped lesion represents a scar tissue from his previous pulmonary emboli. He has no evidence of pneumonia and that he has no fever or white count. He has no chest pain. He has no shortness of breath and a subsequent PE is unlikel y. We will ask Pulmonology to evaluate the situation first as well to ensure that it is not anything more heaviness. 3. Throat tightness consistent with his history of prior esophageal spasms. It is possible this cou ld represent an atypical angina given some history of coronary disease, albeit minimal. We will go a head and place him on telemetry and get serial enzymes. Should they be negative, I do not believe he needs to undergo further significant cardiac evaluation at least at this particular visit. 4. Rheumatoid arthritis. We will continue with his usual home medications. 5. Elevated blood pressure. Patient has a history of hypertension. His pressure is somewhat better now. We will continue with his usual home regimen. 6. History of chronic obstructive pulmonary disease. We will continue with bronchodilators.
[2018-03-15] MEDS: Acetaminophen 325 MG TAB PO PRN (20:44)
[2018-03-15] MEDS: Apixaban 5 MG TAB PO SCH (20:44)
[2018-03-15] MEDS: Hydroxychloroquine Sulfate 200 MG TAB PO SCH (20:44)
[2018-03-15] MEDS ORDERED: Atorvastatin Calcium 20 MG TAB PO SCH (21:00)
[2018-03-15] MEDS ORDERED: Non-Formulary Item 1 EACH (Budesonide [Pulmicort Flexhaler] 2 PUFF) INH SCH (21:00)
[2018-03-15 21:59] LABS: Troponin I Less than 0.010 ng/mL (< 0.028)
[2018-03-16] MEDS: Acetaminophen 325 MG TAB PO PRN ×2 (04:11→08:59)
[2018-03-16] MEDS: Furosemide 40 MG TAB PO SCH ×2 (04:11→13:09)
[2018-03-16 04:21] LABS: #Basophils 0.1 thou/uL (0.0-0.2); #Eosinphils 0.5 thou/uL (0.0-0.7); #Monocytes 0.6 thou/uL (0.11-0.59); #Neutrophils 2.9 thou/uL (1.40-6.50); %Eosinophils 10.1 % (0.0-10.0); %Lymphocytes 19.8 % (21.0-51.0); %Monocytes 11.6 % (0.0-10.0); %Neutrophils 56.5 % (42.0-75.0); Hemoglobin 12.6 g/dL (14.0-18.0); Mean Corpuscular HGB CONC 32.4 g/dL (32.0-36.0); Mean Corpuscular Hemoglobin 30.7 pg (27.0-31.0); Mean Corpuscular Volume 94.5 fL (78.0-98.0); Platelet Count 270 thou/uL (130-400); RBC Distribution Width 15.4 % (11.5-14.5); Red Blood Cell (RBC) Count 4.11 mill/uL (4.70-6.10); White Blood Cell (WBC) Count 5.2 thou/uL (4.8-10.8)
[2018-03-16 04:35] LABS: Anion Gap 12 mmol/L (10-20); BUN (Urea Nitrogen) 19 mg/dL (8.4-25.7); Calc. Creatinine Clearance 95 mL/min (70-130); Calcium 9.9 mg/dL (7.8-10.44); Carbon Dioxide 30 mmol/L (23-31); Chloride 101 mmol/L (98-107); Estimated GFR-MDRD 68; Glucose 107 mg/dL (83-110); Potassium 3.9 mmol/L (3.5-5.1); Sodium 139 mmol/L (136-145)
[2018-03-16 04:43] LABS: Troponin I Less than 0.010 ng/mL (< 0.028)
[2018-03-16] MEDS: Hydroxychloroquine Sulfate 200 MG TAB PO SCH (08:58)
[2018-03-16] MEDS: Apixaban 5 MG TAB PO SCH (08:58)
[2018-03-16] MEDS ORDERED: Leflunomide 10 mg Tablet PO SCH (09:00)
[2018-03-16] MEDS ORDERED: Allopurinol 100 MG TAB PO SCH (09:00)
[2018-03-16] MEDS ORDERED: Amlodipine 5 MG TAB PO SCH (09:00)
--- NOTE | 2018-03-16 10:35 | CON ---
DATE OF CONSULTATION: 03/16/2018 REASON FOR EVALUATION: Possible pulmonary infarction. HISTORY OF PRESENT ILLNESS: A 73-year-old male who was sent over from the [place] yesterday. He hutton d some unusual symptoms yesterday morning where he got up, had breakfast, felt listless afterward, hutton d some numbness in his hands, had some esophageal spasm. He did not have much in the way of shortnes s of breath, had no chest pain or hemoptysis. After arrival here, his symptoms resolved. He has CT pulmonary angiogram performed because he has a remote history of pulmonary embolism. It did not show any evidence of PE, but has a wedge-shaped defect in the right mid lung area which was not present o n the previous CT scan. PAST MEDICAL HISTORY: 1. I saw him in June for PE and DVT. He has been on Eliquis 5 mg a day, ever since. He has a hi story of DVT back in the 2. Chronic obstructive pulmonary disease. 3. Hypertension. 4. Hyperlipidemia. PAST SURGICAL HISTORY: 1. Shoulder surgery. 2. Left knee arthroscopy. 3. Heart catheterization. 4. Right elbow surgery. SOCIAL HISTORY: Quit smoking in 1986. Does not consume alcohol, does not use illicit drugs. REVIEW OF SYSTEMS: Twelve point review of systems is otherwise negative. ALLERGIES: XIOMARA INHIBITORS cause angioedema. MEDICATIONS PRIOR TO ADMISSION: Eliquis 5 mg twice daily, atorvastatin 40 mg daily, allopurinol 100 mg daily, Lasix 40 mg daily, amlodipine 5 mg daily, hydroxychloroquine 200 mg b.i.d., Pulmicort Flexh aler 2 puffs twice daily and Ventolin 2 puffs as needed. PHYSICAL EXAMINATION: VITAL SIGNS: Temperature 97.5, pulse 60, blood pressure 141/85, O2 sat 95% on room air, blood pressu re 141/85. GENERAL: He is awake and alert and in no distress. HEENT: Unremarkable. NECK: No adenopathy, JVD, or bruits. LUNGS: Clear without wheezing or rhonchi. CARDIAC: S1, S2 regular, without murmur. ABDOMEN: Soft, nontender. EXTREMITIES: Without clubbing, cyanosis, or edema. CT of the chest was reviewed in detail and compared to the scan in June. There was no pulmonary e mboli seen on this current scan. Wedge shaped defect is in the left upper lobe peripherally on the r ight. I do not see this on the previous scan. This appearance would be consistent with a remote pul monary infarction, but malignancy infection cannot be completely ruled out. RECOMMENDATIONS: 1. At the very least, he will need a repeat CT scan in a couple months to assure stability of the le montse. 2. The has some concerns about DVT and is concerned about his elevated D-dimer on his laborator y testing. I told her I did not have any issues with repeating Doppler scan of his leg, but I doubt it will be positive. 3. He needs to follow up in my office in 2 [address] to have his CT scan repeated.
--- NOTE | 2018-03-16 10:39 | PDOC.PN ---
- Subjective Encounter Start Date: 03/16/18 Encounter Start Time: 10:37 Subjective: sob or chest pain - Objective Resuscitation Status: Resuscitation Status FULL:Full Resuscitation MAR Reviewed: Yes Vital Signs & Weight: Vital Signs (12 hours) Temp Pulse Resp BP BP Pulse Ox 03/16/18 08:57 60 141/85 H 03/16/18 07:22 98.3 F 60 16 141/85 H 93 L 03/16/18 04:11 97.5 F L 66 15 166/85 H 95 Weight Weight 240 lb 12.8 oz I&O: 03/15/18 03/16/18 03/17/18 06:59 06:59 06:59 Intake Total 450 300 Output Total 550 Balance 450 -250 Result Diagrams: 03/16/18 03:57 03/16/18 03:57 Phys Exam - Physical Examination Neck: no JVD Respiratory: clear to auscultation bilateral Cardiovascular: RRR, no significant murmur Gastrointestinal: soft, non-tender, positive bowel sounds Musculoskeletal: no edema Dx/Plan (1) Pulmonary infarction Code(s): I26.99 - OTHER PULMONARY EMBOLISM WITHOUT ACUTE COR PULMONALE Status : Acute Comment: unknown whether acute or old scar (2) Asthma Code(s): J45.909 - UNSPECIFIED ASTHMA, UNCOMPLICATED Status: Chronic Qualifiers: Asthma severity: unspecified severity Asthma complication type: unspecified (3) CAD (coronary artery disease) Code(s): I25.10 - ATHSCL HEART DISEASE OF [place] CORONARY ARTERY W/O ANG PCTRS Status: Chronic Qualifiers: Coronary Disease-Associated Artery/Lesion type: [place] artery [place] vs. transplanted heart: [place] heart Associated angina: without angina Qualified Code(s): I25.10 - Atherosclerotic heart disease of [place] coronary artery without angina pectoris (4) Dyslipidemia Code(s): E78.5 - HYPERLIPIDEMIA, UNSPECIFIED Status: Chronic (5) HTN (hypertension) Code(s): I10 - ESSENTIAL (PRIMARY) HYPERTENSION Status: Chronic Qualifiers: Hypertension type: essential hypertension Comment: Follow serial trend after extubation, no XIOMARA/ARB's (6) NOAH (obstructive sleep apnea) Code(s): G47.33 - OBSTRUCTIVE SLEEP APNEA (ADULT) (PEDIATRIC) Status: Chronic - Plan CT - no definite clot -: LE venous doppler pending -: cont eliquis, etc * .
--- NOTE | 2018-03-16 14:08 | ULT ---
BILATERAL LOWER EXTREMITY VENOUS DOPPLER ULTRASOUND: DATE: 03/16/2018. COMPARISON: None. HISTORY: Edema/swelling, assess for DVT. TECHNIQUE: Multiplanar, hernandez scale sonographic imaging of the venous structures bilateral lower extremities obta ined with color flow and spectral analysis. FINDINGS: Bilateral common femoral veins, greater saphenous veins, profunda femoral veins, femoral veins, popli teal veins, and posterior tibial veins are patent. There is normal blood flow, augmentation, and com pression within the deep venous system bilaterally. No evidence for DVT identified on either side. IMPRESSION: No evidence for deep venous thrombosis of either lower extremity. POS: BOB
[2018-03-16 15:57] VITALS: BP 123/67; TEMP 98.4
--- NOTE | 2018-03-16 16:15 | DIS ---
DATE OF ADMISSION: 03/15/2018 DATE OF DISCHARGE: 03/16/2018 PRIMARY CARE PROVIDER: Epifanio Mcleod M.D. DISPOSITION: Discharged home. CODE STATUS: FULL. PENDING AT THE TIME OF DISCHARGE: Nothing. DIAGNOSES: Pulmonary infarction, asthma, coronary artery disease, dyslipidemia, hypertension, obstru ctive sleep apnea, sarcoidosis. DISCHARGE MEDICATIONS: Same as admitting medications. Norvasc 5 mg a day, Plaquenil 200 mg twice a day, Lasix 40 mg twice a day, allopurinol 100 mg a day, budesonide puffs twice a day, Eliquis 5 mg tw ice a day, Ventolin HFA 2 puffs q.4 hours p.r.n. Arava 20 mg a day, atorvastatin 20 mg a day. ALLERGIES: Allergic to both XIOMARA and ARB class of medications. HOSPITAL COURSE: The patient admitted through [facility] to the [facility]. He had some numbness in his hands, noted he had some irregular beats, had a feeling of throat tightness. Workup in [place] included an elevated D-dimer. CT of the chest revealed a small wedge defect in the right middle lobe that was new from June when he had massive pulmonary emboli, almos t totally obstructing his left pulmonary artery. The patient was asymptomatic this morning when I sa w him. His admitting CBC was unremarkable except for some elevation of monocytes, eosinophils. His basic metabolic profile was normal. Cardiac enzymes were normal. He was seen in consultation by Dr. Jean Pierre Valverde. Venous Doppler of both lower extremities were unremarkable. He is currently feeling well, desirous of going home. He is being discharged home. He has been requested to follow up with Dr. Mcleod in 1 week.
[2018-03-16] MEDS ORDERED: Mometasone Furoate 120 PUFF 220 MCG INH SCH (18:30)
== END 2018-03-16 16:16 | disposition home or self-care (01) ==
LOC: ERS 13:44 → 2SW 18:10
PROVIDERS: ADMIT Internal Medicine; ATTEND Internal Medicine
DX: I26.99 Other pulmonary embolism without acute cor pulmonale (principal); J45.909 Unspecified asthma, uncomplicated; I25.10 Atherosclerotic heart disease of native coronary artery without angina pectoris; E78.5 Hyperlipidemia, unspecified; Z79.01 Long term (current) use of anticoagulants; G47.33 Obstructive sleep apnea (adult) (pediatric); Z79.899 Other long term (current) drug therapy; Z87.891 Personal history of nicotine dependence
CPT/HCPCS: 80048; 84484 ×2; 85025; 93970; 99285; G0378; 36415

== ENCOUNTER 2020-09-04 09:13 | Outpatient (CLI) | payer MEDICARE | END 2020-09-04 09:14 | disposition home or self-care (01) | LOC: LABBT 09:13 | PROVIDERS: ATTEND Thoracic Surgery (Cardiothoracic Vascular Surgery) | DX: Z01.812 Encounter for preprocedural laboratory examination (principal); I25.10 Atherosclerotic heart disease of native coronary artery without angina pectoris; Z20.822 Contact with and (suspected) exposure to COVID-19 | CPT/HCPCS: 71046 ==

== ENCOUNTER 2020-09-04 12:45 | Inpatient (IN) | payer MEDICARE ==
[2020-09-04 14:39] LABS: Hemoglobin 11.1 g/dL (13.5-17.5); Mean Corpuscular Hemoglobin 33.7 pg (27.0-33.0); Mean Corpuscular Volume 102.1 fl (81.2-95.1); Mean Platelet Volume 9.3 fl (7.4-10.4); Platelet Count 225 10x3/uL (150-450); RBC Distribution Width 15.6 % (11.5-14.5); Red Blood Cell (RBC) Count 3.29 10x6/uL (4.32-5.72); White Blood Cell (WBC) Count 6.1 10x3/uL (3.5-10.5)
[2020-09-04 14:44] LABS: Anion Gap 13 mmol/L (10-20); BUN (Urea Nitrogen) 15 mg/dL (8.4-25.7); Calc. Creatinine Clearance 0 mL/min (70-130); Calcium 9.4 mg/dL (7.8-10.44); Carbon Dioxide 34 mmol/L (23-31); Chloride 96 mmol/L (98-107); Glucose 98 mg/dL (83-110); Potassium 3.5 mmol/L (3.5-5.1); Sodium 139 mmol/L (136-145)
[2020-09-05 04:50] LABS: SARS-CoV-2 PCR by NAA Not Detected (NotDetected)
[2020-09-07] MEDS ORDERED: Albumin 5% 500 ML ONE (06:25)
[2020-09-07] MEDS ORDERED: Papaverine 60 MG/2 ML VIAL ONE ×2 (06:46→07:57)
[2020-09-07] MEDS ORDERED: Midazolam HCl 5 mg/5 ml Vial ONE (07:00)
[2020-09-07] MEDS ORDERED: Fentanyl 250 MCG/5 ML VIAL ONE (07:00)
[2020-09-07] MEDS ORDERED: Potassium Chloride 20 MEQ/100 ML PREMIX BAG IVPB PRN (07:47)
[2020-09-07] MEDS ORDERED: Bisacodyl 5 MG TAB PO PRN (07:47)
[2020-09-07] MEDS ORDERED: niCARdipine 25 MG in Sodium Chloride 0.9% 250 ML 250 ML IVPB PRN (07:47)
[2020-09-07] MEDS ORDERED: Morphine 2 MG/ML VIAL SLOW IVP PRN ×2 (07:47→17:00)
[2020-09-07] MEDS ORDERED: Bisacodyl 10 MG SUPP PR PRN (07:47)
[2020-09-07] MEDS ORDERED: Nitroglycerin 50 MG/250 ML BOT 250 ML IVPB PRN (07:47)
[2020-09-07] MEDS ORDERED: Mag-Al 1200 mg/1200 mg/30 ML UDCUP PO PRN (07:47)
[2020-09-07] MEDS ORDERED: hydrALAZINE 20 MG/ML VIAL SLOW IVP PRN (07:47)
[2020-09-07] MEDS ORDERED: Fentanyl 100 MCG/2 ML VIAL SLOW IVP PRN ×2 (07:47)
[2020-09-07] MEDS ORDERED: HYDROcodone/Acetaminophen 5/325 mg Tablet PO PRN ×2 (07:47)
[2020-09-07] MEDS ORDERED: Post-Op Insulin Drip Protocol IVPB ONE (07:47)
[2020-09-07] MEDS ORDERED: Ondansetron PF 4 MG/2 ML Vial IVP PRN (07:47)
[2020-09-07] MEDS ORDERED: Hetastarch 6% 500 ML 500 ML IVPB PRN (07:47)
[2020-09-07] MEDS ORDERED: Guaifenesin DM 100-10/5 ML UDCUP PO PRN (07:47)
[2020-09-07] MEDS ORDERED: Promethazine HCl 25 MG/ML VIAL IM PRN (07:47)
[2020-09-07] MEDS ORDERED: PHENYLEPHRINE-NS 100 MCG/ML 10 ML SYRINGE ONE ×2 (07:49→07:57)
[2020-09-07] MEDS ORDERED: Sodium Bicarb 50 MEQ/50 ML Abboject 8.4% SYRINGE ONE ×2 (07:57→20:47)
[2020-09-07] MEDS ORDERED: Heparin 5,000 UNITS/ML VIAL ONE (07:57)
[2020-09-07] MEDS ORDERED: Aminocaproic Acid 5 GM/20 ML VIAL ONE (07:57)
[2020-09-07] MEDS ORDERED: Magnesium Sulfate 1 GM/2 ML VIAL ONE (07:57)
[2020-09-07] MEDS ORDERED: PROPOFOL 200 MG/20 ML VIAL ONE (07:57)
[2020-09-07] MEDS ORDERED: Potassium Chloride 60 MEQ/30 ML VIAL ONE (07:57)
[2020-09-07] MEDS ORDERED: Calcium Chloride 1 GM/10 ML Abboject SYRINGE ONE (07:57)
[2020-09-07] MEDS ORDERED: Heparin 30,000 units/30 ml VIAL ONE (07:57)
[2020-09-07] MEDS ORDERED: Dexamethasone 20 MG/5 ML VIAL ONE (07:57)
[2020-09-07] MEDS ORDERED: ePHEDrine 50 MG/ML VIAL ONE (07:57)
[2020-09-07] MEDS ORDERED: Cardioplegic Soln 1,000 ML BAG ONE (07:57)
[2020-09-07] MEDS ORDERED: Protamine Sulfate 250 MG/25 ML VIAL ONE ×2 (07:57→14:02)
[2020-09-07] MEDS ORDERED: Thrombin 5000 UNITS/5 ML VIAL ONE (07:57)
[2020-09-07] MEDS ORDERED: Lidocaine 1% PF 5 ML VIAL ONE (07:57)
[2020-09-07] MEDS ORDERED: Lidocaine 2% PF 100 mg/5 ml Syringe ONE (07:57)
[2020-09-07] MEDS ORDERED: Norepinephrine 4 MG/4 ML VIAL ONE (07:57)
[2020-09-07] MEDS ORDERED: Rocuronium Bromide 10 MG/ML (10ML VIAL) ONE (07:57)
[2020-09-07] MEDS ORDERED: Vecuronium 10 MG VIAL ONE (07:57)
[2020-09-07] MEDS ORDERED: Mannitol 12.5 GM/50 ML ONE (07:57)
[2020-09-07] MEDS ORDERED: Dextrose 50% Abboject 50 ML SYRINGE SLOW IVP PRN (08:30)
[2020-09-07] MEDS ORDERED: Dextrose 5% in Water 1,000 ML IV PRN (08:30)
[2020-09-07] MEDS ORDERED: Bivalirudin 250 MG VIAL ONE (11:24)
[2020-09-07] MEDS ORDERED: Sterile Water 10 ML ONE ×2 (11:26)
[2020-09-07] MEDS ORDERED: CEFAZOLIN 1 GM VIAL ONE ×2 (11:40→14:13)
[2020-09-07] MEDS ORDERED: Sterile Water 20 ML ONE ×2 (11:43→14:13)
[2020-09-07] MEDS ORDERED: ADMIXTURE FEE IV SCH (12:45)
[2020-09-07] MEDS ORDERED: BIVALIRUDIN IV SCH (12:45)
[2020-09-07] MEDS ORDERED: Bivalirudin 250 MG VIAL IV SCH (14:15)
[2020-09-07 14:59] LABS: Actual Bicarbonate (HCO3a) 20.8 mEq/L (22-28); Base Excess (BEa) -4.1 mEq/L (-2.0 to +3.0); CO2 Tension 37.4 mmHg (35.0-45.0); Calcium, Ionized (arterial) 1.01 mmol/L (1.12-1.30); Carboxyhemoglobin (COHb) 1.3 gm% (0.0-3.0); Hemoglobin (Hb) 11.7 g/dL (14.0-18.0); pH, Arterial 7.36 (7.35-7.45)
[2020-09-07 15:00] LABS: Puncture Site Arterial Line
[2020-09-07] MEDS: Protamine Sulfate 50 MG/5 ML VIAL ONE ×2 (15:00→15:20)
[2020-09-07 15:20] LABS: Prothrombin Time 53.4 sec (12.0-14.7)
[2020-09-07 15:21] LABS: Potassium 3.2 mmol/L (3.5-5.1)
[2020-09-07 15:22] LABS: INR-International Normal Ratio 5.8
[2020-09-07 15:23] LABS: PTT 116.3 sec (22.9-36.1)
[2020-09-07 15:27] LABS: Anion Gap 15 mmol/L (10-20); BUN (Urea Nitrogen) 16 mg/dL (8.4-25.7); Calc. Creatinine Clearance 68 mL/min (70-130); Calcium 7.5 mg/dL (7.8-10.44); Carbon Dioxide 21 mmol/L (23-31); Chloride 107 mmol/L (98-107); Glucose 192 mg/dL (83-110); Potassium 3.2 mmol/L (3.5-5.1); Sodium 140 mmol/L (136-145)
[2020-09-07 16:06] LABS: Band 25 % (5-11); Hemoglobin 11.4 g/dL (14.0-18.0); Lymphocytes 13 % (21-51); MDiff Complete? YES; Macrocytosis SLIGHT = 6-15 cells (100X) (0-5/hpf); Mean Corpuscular HGB CONC 33.3 g/dL (32.0-36.0); Mean Corpuscular Hemoglobin 34.5 pg (27.0-31.0); Mean Platelet Volume 6.8 fL (7.4-10.4); Metamyelocyte 2 % (0-0); Monocytes 7 % (0-10); Neutrophil 53 % (42-75); Platelet Count 221 thou/uL (130-400); Platelet Morphology Comment Appears Adequate; Polychromasia SLIGHT = 2-3 cells (100X) (0-2/hpf); RBC Distribution Width 14.9 % (11.5-14.5); White Blood Cell (WBC) Count 20.5 thou/uL (4.8-10.8)
[2020-09-07] MEDS: Sodium Chloride 0.9% 1,000 ML IV SCH ×2 (16:25→16:37)
[2020-09-07] MEDS: Famotidine/PF 20 mg/2ml Vial SLOW IVP SCH ×2 (16:25→20:36)
[2020-09-07] MEDS: Allopurinol 100 MG TAB PO SCH (16:25)
[2020-09-07] MEDS: Aspirin 81 mg Enteric Coated Tablet PO SCH (16:25)
[2020-09-07] MEDS: Docusate 100 MG CAP PO SCH ×2 (16:25→20:36)
[2020-09-07 16:51] LABS: #Eosinphils 0.1 thou/uL (0.0-0.7); #Lymphocytes 2.2 thou/uL (1.20-3.40); #Monocytes 1.6 thou/uL (0.11-0.59); #Neutrophils 11.8 thou/uL (1.40-6.50); %Basophils 0.1 % (0.0-1.0); %Eosinophils 0.9 % (0.0-10.0); %Lymphocytes 13.8 % (21.0-51.0); %Monocytes 10.1 % (0.0-10.0); %Neutrophils 75.1 % (42.0-75.0); Mean Corpuscular Hemoglobin 33.4 pg (27.0-31.0); Mean Platelet Volume 7.1 fL (7.4-10.4); Platelet Count 219 thou/uL (130-400); RBC Distribution Width 14.4 % (11.5-14.5); Red Blood Cell (RBC) Count 2.69 mill/uL (4.70-6.10); White Blood Cell (WBC) Count 15.8 thou/uL (4.8-10.8)
[2020-09-07 16:54] LABS: Platelet Count 219 thou/uL (130-400)
[2020-09-07] MEDS ORDERED: Propofol 1,000 MG/100 ML VIAL IV PRN (17:00)
[2020-09-07] MEDS ORDERED: Fentanyl CADD 100 ML IV SCH (17:00)
[2020-09-07] MEDS ORDERED: Lorazepam 2 MG/ML VIAL SLOW IVP PRN (17:00)
[2020-09-07] MEDS ORDERED: Fentanyl BOLUS 250 ML IVPB PRN (17:00)
[2020-09-07] MEDS ORDERED: Propofol BOLUS 1,000 MG/100 ML VIAL IV PRN (17:00)
[2020-09-07] MEDS ORDERED: DISCONTINUE PREVIOUS NARCOTIC PAIN MEDICATIONS AND BENZODIAZEPINES FS SCH (17:00)
[2020-09-07] MEDS ORDERED: Fentanyl CADD 100 ML ONE (17:06)
[2020-09-07 17:09] LABS: Fibrinogen 232 mg/dL (253-463)
[2020-09-07 17:10] LABS: D-Dimer Test 0.85 *mcg/mL (0.27-0.43); INR-International Normal Ratio 3.7; Prothrombin Time 37.8 sec (12.0-14.7)
[2020-09-07 17:11] LABS: PTT 96.1 sec (22.9-36.1)
[2020-09-07] MEDS: HUMULIN R 100 UNITS in Sodium Chloride 0.9% 100 ML IVPB SCH (17:16)
[2020-09-07 17:42] LABS: FSP-Qualitative Normal (Normal)
[2020-09-07 18:41] LABS: Actual Bicarbonate (HCO3a) 14.1 mEq/L (22-28); Base Excess (BEa) -11.7 mEq/L (-2.0 to +3.0); CO2 Tension 31.3 mmHg (35.0-45.0); Calcium, Ionized (arterial) 0.94 mmol/L (1.12-1.30); Carboxyhemoglobin (COHb) 0.3 gm% (0.0-3.0); Hemoglobin (Hb) 9.2 g/dL (14.0-18.0); O2 Tension (PaO2), arterial 236.4 mmHg (> 70.0); Potassium - ABG Lab 3.52 mmol/L (3.70-5.30); pH, Arterial 7.27 (7.35-7.45)
[2020-09-07 18:43] LABS: ALV-art Gradient 80.975 mmHg (0-20); Puncture Site Arterial Line
[2020-09-07] MEDS: Sodium Bicarb 50 MEQ/50 ML Abboject 8.4% SYRINGE IVP SCH ×2 (18:50→20:50)
[2020-09-07] MEDS: Mometasone 100 MCG/PUFF (1 INHALER) INH SCH (19:15)
[2020-09-07 19:54] LABS: Actual Bicarbonate (HCO3a) 14.6 mEq/L (22-28); CO2 Tension 31.4 mmHg (35.0-45.0); Calcium, Ionized (arterial) 0.88 mmol/L (1.12-1.30); Carboxyhemoglobin (COHb) 0.5 gm% (0.0-3.0); Hemoglobin (Hb) 7.9 g/dL (14.0-18.0); O2 Tension (PaO2), arterial 174.1 mmHg (> 70.0); Potassium - ABG Lab 3.27 mmol/L (3.70-5.30); pH, Arterial 7.29 (7.35-7.45)
[2020-09-07 19:58] LABS: Puncture Site Arterial Line
[2020-09-07] MEDS: Rosuvastatin 20 MG TAB PO SCH (20:36)
[2020-09-07] MEDS ORDERED: Sodium Bicarb 50 MEQ/50 ML Abboject 8.4% SYRINGE IVP SCH (21:00)
[2020-09-07] MEDS: Norepinephrine 8 MG/0.9% NS 250 ML IVPB PRN (21:27)
[2020-09-08 02:13] LABS: Actual Bicarbonate (HCO3a) 16.2 mEq/L (22-28); Base Excess (BEa) -9.1 mEq/L (-2.0 to +3.0); Calcium, Ionized (arterial) 0.93 mmol/L (1.12-1.30); Carboxyhemoglobin (COHb) 0.3 gm% (0.0-3.0); Hemoglobin (Hb) 10.3 g/dL (14.0-18.0); O2 Tension (PaO2), arterial 172.1 mmHg (> 70.0); Potassium - ABG Lab 3.03 mmol/L (3.70-5.30); pH, Arterial 7.31 (7.35-7.45)
[2020-09-08 02:20] LABS: Puncture Site Arterial Line
[2020-09-08] MEDS: HUMULIN R 100 UNITS in Sodium Chloride 0.9% 100 ML IVPB SCH (03:31)
[2020-09-08] MEDS: Norepinephrine 8 MG/0.9% NS 250 ML IVPB PRN ×2 (04:14→19:36)
[2020-09-08 04:26] LABS: #Lymphocytes 0.8 thou/uL (1.20-3.40); #Neutrophils 12.7 thou/uL (1.40-6.50); %Basophils 0.1 % (0.0-1.0); %Eosinophils 0.2 % (0.0-10.0); %Lymphocytes 5.4 % (21.0-51.0); %Monocytes 12.5 % (0.0-10.0); %Neutrophils 81.8 % (42.0-75.0); Hemoglobin 9.7 g/dL (14.0-18.0); Mean Corpuscular HGB CONC 34.1 g/dL (32.0-36.0); Mean Corpuscular Hemoglobin 33.6 pg (27.0-31.0); Mean Corpuscular Volume 98.7 fL (78.0-98.0); Mean Platelet Volume 7.9 fL (7.4-10.4); Platelet Count 237 thou/uL (130-400); RBC Distribution Width 14.5 % (11.5-14.5); Red Blood Cell (RBC) Count 2.87 mill/uL (4.70-6.10); White Blood Cell (WBC) Count 15.5 thou/uL (4.8-10.8)
[2020-09-08] MEDS: Sodium Chloride 0.9% 1,000 ML IV SCH (04:30)
[2020-09-08 04:46] LABS: Anion Gap 23 mmol/L (10-20); BUN (Urea Nitrogen) 20 mg/dL (8.4-25.7); Calc. Creatinine Clearance 47 mL/min (70-130); Calcium 7.2 mg/dL (7.8-10.44); Carbon Dioxide 15 mmol/L (23-31); Chloride 110 mmol/L (98-107); Glucose 135 mg/dL (83-110); Sodium 145 mmol/L (136-145)
[2020-09-08] MEDS: Mometasone 100 MCG/PUFF (1 INHALER) INH SCH ×2 (07:45→19:04)
[2020-09-08 08:02] LABS: Actual Bicarbonate (HCO3a) 17.6 mEq/L (22-28); Base Excess (BEa) -6.9 mEq/L (-2.0 to +3.0); Calcium, Ionized (arterial) 0.92 mmol/L (1.12-1.30); Hemoglobin (Hb) 8.5 g/dL (14.0-18.0); pH, Arterial 7.37 (7.35-7.45)
[2020-09-08 08:03] LABS: Puncture Site RRA
[2020-09-08] MEDS ORDERED: Morphine CADD 100 ML IVPB SCH (08:30)
[2020-09-08] MEDS: Famotidine/PF 20 mg/2ml Vial SLOW IVP SCH (08:54)
[2020-09-08] MEDS: Furosemide 40 MG/4 ML VIAL SLOW IVP SCH ×2 (08:54→13:16)
[2020-09-08 09:39] LABS: Fibrinogen 222 mg/dL (253-463); INR-International Normal Ratio 1.6; PTT 40.6 sec (22.9-36.1); Prothrombin Time 19.2 sec (12.0-14.7)
[2020-09-08] MEDS: Docusate 100 MG CAP PO SCH ×2 (10:16→21:13)
[2020-09-08] MEDS: Aspirin 81 mg Enteric Coated Tablet PO SCH (10:16)
[2020-09-08] MEDS: Allopurinol 100 MG TAB PO SCH (10:16)
[2020-09-08 10:36] LABS: FSP-Qualitative ABNORMAL (Normal); FSP-Semiquantitative >=5 & <20 mcg/mL (Less than 5)
[2020-09-08 10:43] LABS: Platelet Count 230 thou/uL (130-400)
[2020-09-08] MEDS ORDERED: Sodium Chloride 0.9% 1,000 ML IV SCH (11:00)
[2020-09-08] MEDS: Insulin Regular 300 UNITS/3 ML VIAL SC PRN ×2 (11:04→16:02)
[2020-09-08] MEDS ORDERED: Atorvastatin Calcium 20 MG TAB PO SCH (21:00)
[2020-09-08] MEDS ORDERED: Metolazone 5 MG TAB PER TUBE SCH (21:00)
[2020-09-08] MEDS ORDERED: Furosemide 40 MG/4 ML VIAL SLOW IVP SCH (21:00)
[2020-09-08] MEDS: Rosuvastatin 20 MG TAB PO SCH (21:14)
[2020-09-08] MEDS: Acetaminophen 325 MG TAB PO PRN (23:20)
[2020-09-09] MEDS: Insulin Regular 300 UNITS/3 ML VIAL SC PRN ×2 (00:28→04:36)
[2020-09-09] MEDS: Norepinephrine 8 MG/0.9% NS 250 ML IVPB PRN ×3 (03:16→20:52)
[2020-09-09] MEDS: Acetaminophen 325 MG TAB PO PRN ×2 (04:32→21:45)
[2020-09-09 05:04] LABS: FSP-Qualitative ABNORMAL (Normal); FSP-Semiquantitative >=5 & <20 mcg/mL (Less than 5)
[2020-09-09 05:11] LABS: Fibrinogen 239 mg/dL (253-463)
[2020-09-09 05:12] LABS: D-Dimer Test 0.94 *mcg/mL (0.27-0.43); INR-International Normal Ratio 1.6; PTT 29.2 sec (22.9-36.1); Prothrombin Time 19.2 sec (12.0-14.7)
[2020-09-09 05:15] LABS: Band 32 % (5-11); Hemoglobin 7.7 g/dL (14.0-18.0); Lymphocytes 6 % (21-51); MDiff Complete? YES; Mean Corpuscular HGB CONC 33.2 g/dL (32.0-36.0); Mean Corpuscular Hemoglobin 33.4 pg (27.0-31.0); Mean Platelet Volume 7.8 fL (7.4-10.4); Monocytes 8 % (0-10); Neutrophil 54 % (42-75); Platelet Count 263 thou/uL (130-400); Platelet Morphology Comment Appears Adequate; RBC Distribution Width 15.8 % (11.5-14.5); White Blood Cell (WBC) Count 23.2 thou/uL (4.8-10.8)
[2020-09-09 05:17] LABS: Anion Gap 26 mmol/L (10-20); BUN (Urea Nitrogen) 34 mg/dL (8.4-25.7); Calc. Creatinine Clearance 31 mL/min (70-130); Calcium 7.3 mg/dL (7.8-10.44); Carbon Dioxide 16 mmol/L (23-31); Chloride 107 mmol/L (98-107); Glucose 150 mg/dL (83-110); Magnesium 1.7 mg/dL (1.6-2.6); Sodium 145 mmol/L (136-145)
[2020-09-09 05:43] LABS: Platelet Count 263 thou/uL (130-400)
[2020-09-09 06:39] VITALS: BMI 35.7
[2020-09-09] MEDS: Mometasone 100 MCG/PUFF (1 INHALER) INH SCH ×2 (07:33→19:41)
[2020-09-09] MEDS: Famotidine/PF 20 mg/2ml Vial SLOW IVP SCH (08:42)
[2020-09-09] MEDS: Aspirin 81 mg Enteric Coated Tablet PO SCH (08:42)
[2020-09-09] MEDS: Docusate 100 MG CAP PO SCH ×2 (08:42→20:54)
[2020-09-09] MEDS: Allopurinol 100 MG TAB PO SCH (08:42)
[2020-09-09] MEDS ORDERED: Metolazone 5 MG TAB PO SCH (09:20)
[2020-09-09] MEDS ORDERED: Furosemide 100 MG/10 ML VIAL SLOW IVP SCH (09:30)
[2020-09-09] MEDS: Furosemide 100 MG/10 ML VIAL SLOW IVP SCH (13:51)
[2020-09-09] MEDS ORDERED: Atorvastatin Calcium 20 MG TAB PO SCH (21:00)
[2020-09-10] MEDS ORDERED: Calcium Chloride 1 GM/10 ML Abboject SYRINGE ONE (00:35)
[2020-09-10] MEDS ORDERED: Sodium Bicarb 50 MEQ/50 ML Abboject 8.4% SYRINGE ONE ×2 (00:35→11:43)
[2020-09-10] MEDS ORDERED: EPINEPHrine 1 MG/10 ML Abboject SYRINGE ONE (00:35)
[2020-09-10] MEDS ORDERED: EPINEPHrine 4 MG in Dextrose 5% in Water 250 ML IV SCH (01:00)
[2020-09-10 01:15] LABS: Actual Bicarbonate (HCO3a) 9.5 mEq/L (22-28); Base Excess (BEa) -20.1 mEq/L (-2.0 to +3.0); CO2 Tension 37.4 mmHg (35.0-45.0); Calcium, Ionized (arterial) 1.04 mmol/L (1.12-1.30); Carboxyhemoglobin (COHb) 0.1 gm% (0.0-3.0); O2 Tension (PaO2), arterial 476.8 mmHg (> 70.0); Potassium - ABG Lab 4.39 mmol/L (3.70-5.30)
[2020-09-10 01:18] LABS: pH, Arterial 7.02 (7.35-7.45)
[2020-09-10 01:19] LABS: Puncture Site Arterial Line
[2020-09-10] MEDS ORDERED: Fentanyl CADD 100 ML ONE (01:22)
[2020-09-10 01:24] LABS: Hemoglobin 8.7 g/dL (14.0-18.0); Mean Corpuscular HGB CONC 33.2 g/dL (32.0-36.0); Mean Corpuscular Hemoglobin 33.6 pg (27.0-31.0); Mean Platelet Volume 8.2 fL (7.4-10.4); Platelet Count 178 thou/uL (130-400); RBC Distribution Width 16.2 % (11.5-14.5); Red Blood Cell (RBC) Count 2.59 mill/uL (4.70-6.10); White Blood Cell (WBC) Count 22.2 thou/uL (4.8-10.8)
[2020-09-10] MEDS ORDERED: Ventilator Sedation Protocol 1 EACH FS ONE (01:24)
[2020-09-10] MEDS ORDERED: Vecuronium 10 MG VIAL ONE (01:28)
[2020-09-10] MEDS ORDERED: Vecuronium 10 MG VIAL IVP PRN ×2 (01:28→03:42)
[2020-09-10] MEDS ORDERED: DISCONTINUE PREVIOUS NARCOTIC PAIN MEDICATIONS AND BENZODIAZEPINES FS SCH (01:30)
[2020-09-10] MEDS ORDERED: Fentanyl BOLUS 250 ML IVPB PRN (01:30)
[2020-09-10] MEDS ORDERED: Propofol 1,000 MG/100 ML VIAL IV PRN (01:30)
[2020-09-10] MEDS ORDERED: Propofol BOLUS 1,000 MG/100 ML VIAL IV PRN (01:30)
[2020-09-10] MEDS ORDERED: Fentanyl CADD 100 ML IV SCH (01:30)
[2020-09-10] MEDS ORDERED: Lorazepam 2 MG/ML VIAL SLOW IVP PRN (01:30)
[2020-09-10] MEDS ORDERED: Morphine 2 MG/ML VIAL SLOW IVP PRN (01:30)
[2020-09-10 01:44] LABS: Band 1 % (5-11); Lymphocytes 17 % (21-51); MDiff Complete? YES; Metamyelocyte 2 % (0-0); Monocytes 7 % (0-10); Myelocyte 1 % (0-0); Neutrophil 72 % (42-75); Nucleated RBC 2 % (0); Platelet Morphology Comment Appears Adequate
[2020-09-10 01:52] LABS: ALT (SGPT) 239 U/L (8-55); AST (SGOT) 834 U/L (5-34); Albumin 3.1 g/dL (3.4-4.8); Alkaline Phosphatase 80 U/L (40-110); Anion Gap 35 mmol/L (10-20); BUN (Urea Nitrogen) 42 mg/dL (8.4-25.7); Bilirubin, Total 1.3 mg/dL (0.2-1.2); Calc. Creatinine Clearance 25 mL/min (70-130); Calcium 8.5 mg/dL (7.8-10.44); Carbon Dioxide 9 mmol/L (23-31); Chloride 103 mmol/L (98-107); Globulin 2.1 g/dL (2.4-3.5); Glucose 114 mg/dL (83-110); Magnesium 2.2 mg/dL (1.6-2.6); Phosphorus 9.9 mg/dL (2.3-4.7); Potassium 4.5 mmol/L (3.5-5.1); Protein, Total 5.2 g/dL (5.8-8.1); Sodium 142 mmol/L (136-145)
[2020-09-10 02:00] LABS: Lactic Acid 14.2 mmol/L (0.5-2.2)
[2020-09-10] MEDS: Sodium Bicarb 50 MEQ/50 ML Abboject 8.4% SYRINGE ONE ×5 (03:27→11:47)
[2020-09-10 03:37] LABS: Actual Bicarbonate (HCO3a) 14.1 mEq/L (22-28); Base Excess (BEa) -14.8 mEq/L (-2.0 to +3.0); CO2 Tension 46.1 mmHg (35.0-45.0); Calcium, Ionized (arterial) 0.91 mmol/L (1.12-1.30); Carboxyhemoglobin (COHb) 0.3 gm% (0.0-3.0); Hemoglobin (Hb) 9.8 g/dL (14.0-18.0); O2 Tension (PaO2), arterial 309.1 mmHg (> 70.0); Potassium - ABG Lab 3.83 mmol/L (3.70-5.30)
[2020-09-10 03:39] LABS: Puncture Site Arterial Line
[2020-09-10 03:40] LABS: ALV-art Gradient 346.275 mmHg (0-20)
[2020-09-10 04:37] VITALS: BP 107/54
[2020-09-10] MEDS: Furosemide 100 MG/10 ML VIAL SLOW IVP SCH ×2 (05:45→12:42)
[2020-09-10] MEDS: Norepinephrine 8 MG/0.9% NS 250 ML IVPB PRN ×3 (06:10→13:30)
[2020-09-10 06:53] LABS: Hemoglobin 10.5 g/dL (14.0-18.0); Mean Corpuscular HGB CONC 33.5 g/dL (32.0-36.0); Mean Corpuscular Hemoglobin 32.8 pg (27.0-31.0); Mean Corpuscular Volume 97.9 fL (78.0-98.0); Mean Platelet Volume 7.7 fL (7.4-10.4); Platelet Count 184 thou/uL (130-400); RBC Distribution Width 15.8 % (11.5-14.5); Red Blood Cell (RBC) Count 3.21 mill/uL (4.70-6.10); White Blood Cell (WBC) Count 13.4 thou/uL (4.8-10.8)
[2020-09-10 07:10] LABS: Anion Gap 30 mmol/L (10-20); BUN (Urea Nitrogen) 43 mg/dL (8.4-25.7); Calc. Creatinine Clearance 25 mL/min (70-130); Calcium 7.3 mg/dL (7.8-10.44); Carbon Dioxide 16 mmol/L (23-31); Chloride 103 mmol/L (98-107); Glucose 129 mg/dL (83-110); Potassium 4.3 mmol/L (3.5-5.1); Sodium 145 mmol/L (136-145)
[2020-09-10 07:28] LABS: Actual Bicarbonate (HCO3a) 13.3 mEq/L (22-28); Analyzer IN Cardio ER; Base Excess (BEa) -15.5 mEq/L (-2.0 to +3.0); CO2 Tension 43.1 mmHg (35.0-45.0); Calcium, Ionized (arterial) 0.92 mmol/L (1.12-1.30); Carboxyhemoglobin (COHb) 0.3 gm% (0.0-3.0); Hemoglobin (Hb) 11.4 g/dL (14.0-18.0); O2 Tension (PaO2), arterial 127.8 mmHg (> 70.0); Potassium - ABG Lab 4.25 mmol/L (3.70-5.30)
[2020-09-10] MEDS: Mometasone 100 MCG/PUFF (1 INHALER) INH SCH (07:40)
[2020-09-10 07:46] LABS: pH, Arterial 7.11 (7.35-7.45)
[2020-09-10 07:47] LABS: ALV-art Gradient 281.775 mmHg (0-20); Puncture Site Arterial Line
[2020-09-10 08:13] LABS: Anisocytosis SLIGHT = 6-15 cells (100X) (0-5/hpf); Band 5 % (5-11); Eosinophils 2 % (0-10); Lymphocytes 5 % (21-51); MDiff Complete? YES; Metamyelocyte 1 % (0-0); Monocytes 9 % (0-10); Neutrophil 78 % (42-75); Nucleated RBC 2 % (0); Platelet Morphology Comment Appears Adequate; Polychromasia SLIGHT = 2-3 cells (100X) (0-2/hpf); Vacuoles SLIGHT
[2020-09-10] MEDS ORDERED: Famotidine/PF 20 mg/2ml Vial SLOW IVP SCH (09:00)
[2020-09-10] MEDS ORDERED: Sterile Water 10 ML ONE (09:15)
[2020-09-10] MEDS: Docusate 100 MG CAP PO SCH (09:26)
[2020-09-10] MEDS: Allopurinol 100 MG TAB PO SCH (09:29)
[2020-09-10] MEDS: Aspirin 81 mg Enteric Coated Tablet PO SCH (09:29)
[2020-09-10] MEDS ORDERED: ADMIXTURE FEE IV SCH (11:00)
[2020-09-10] MEDS ORDERED: SODIUM BICARBONATE IV SCH (11:00)
[2020-09-10] MEDS ORDERED: Vasopressin 20 UNIT, Admixture Fee 1 EACH in Sodium Chloride 0.9% 50 ML IV SCH (11:30)
[2020-09-10] MEDS ORDERED: Sodium Chloride 0.9% 1,000 ML IV SCH (11:30)
[2020-09-10 11:41] LABS: Actual Bicarbonate (HCO3a) 14.1 mEq/L (22-28); Base Excess (BEa) -16.1 mEq/L (-2.0 to +3.0); CO2 Tension 53.7 mmHg (35.0-45.0); Calcium, Ionized (arterial) 0.87 mmol/L (1.12-1.30); Hemoglobin (Hb) 10.1 g/dL (14.0-18.0); O2 Tension (PaO2), arterial 81.1 mmHg (> 70.0); Potassium - ABG Lab 4.76 mmol/L (3.70-5.30)
[2020-09-10 11:46] LABS: ALV-art Gradient 315.225 mmHg (0-20); Puncture Site Arterial Line; pH, Arterial 7.04 (7.35-7.45)
[2020-09-10 12:34] VITALS: TEMP 98.4
[2020-09-18 15:22] LABS: Actual Bicarbonate (HCO3a) 25.7 mEq/L (22-28); Analyzer IN Cardio OR; Base Excess (BEa) 1.5 mEq/L (-2.0 to +3.0); CO2 Tension 38.4 mmHg (35.0-45.0); Calcium, Ionized (arterial) 0.95 mmol/L (1.12-1.30); Carboxyhemoglobin (COHb) 1.9 gm% (0.0-3.0); Hemoglobin (Hb) 6.5 g/dL (14.0-18.0); O2 Tension (PaO2), arterial 286.8 mmHg (> 70.0); Potassium - ABG Lab 3.59 mmol/L (3.70-5.30); pH, Arterial 7.44 (7.35-7.45)
[2020-09-18 15:22] LABS: Actual Bicarbonate (HCO3a) 23.8 mEq/L (22-28); Analyzer IN Cardio OR; Base Excess (BEa) -0.3 mEq/L (-2.0 to +3.0); CO2 Tension 36.9 mmHg (35.0-45.0); Calcium, Ionized (arterial) 1.03 mmol/L (1.12-1.30); Carboxyhemoglobin (COHb) 1.1 gm% (0.0-3.0); O2 Tension (PaO2), arterial 195.5 mmHg (> 70.0); Potassium - ABG Lab 3.08 mmol/L (3.70-5.30); pH, Arterial 7.43 (7.35-7.45)
[2020-09-18 15:22] LABS: Actual Bicarbonate (HCO3a) 27.6 mEq/L (22-28); Analyzer IN Cardio OR; Base Excess (BEa) 3.3 mEq/L (-2.0 to +3.0); CO2 Tension 40.8 mmHg (35.0-45.0); Calcium, Ionized (arterial) 1.07 mmol/L (1.12-1.30); Carboxyhemoglobin (COHb) 0.7 gm% (0.0-3.0); Hemoglobin (Hb) 9.7 g/dL (14.0-18.0); O2 Tension (PaO2), arterial 236.4 mmHg (> 70.0); Potassium - ABG Lab 2.83 mmol/L (3.70-5.30); pH, Arterial 7.45 (7.35-7.45)
[2020-09-18 15:23] LABS: Actual Bicarbonate (HCO3v) 27 mEq/L (22-28); Analyzer IN Cardio OR; Base Excess 1.2 mEq/L (-2.0 to +3.0); Calcium, Ionized (venous) 0.98 mmol/L (1.16-1.32); Chloride (VBG) 102 mmol/L (98-106); Hemoglobin (Hb) 6.8 g/dL (12.6-17.4); Potassium (VBG) 3.55 mmol/L (3.70-5.30); Sodium 135.3 mmol/L (133-146); pH (venous) 7.37 (7.32-7.43)
[2020-09-18 15:23] LABS: Actual Bicarbonate (HCO3a) 24.2 mEq/L (22-28); Analyzer IN Cardio OR; Base Excess (BEa) -0.3 mEq/L (-2.0 to +3.0); CO2 Tension 38.5 mmHg (35.0-45.0); Calcium, Ionized (arterial) 0.96 mmol/L (1.12-1.30); Carboxyhemoglobin (COHb) 1.9 gm% (0.0-3.0); Hemoglobin (Hb) 6.9 g/dL (14.0-18.0); O2 Tension (PaO2), arterial 359.9 mmHg (> 70.0); Potassium - ABG Lab 3.63 mmol/L (3.70-5.30); pH, Arterial 7.42 (7.35-7.45)
[2020-09-18 15:24] LABS: Actual Bicarbonate (HCO3a) 22.9 mEq/L (22-28); Analyzer IN Cardio OR; Base Excess (BEa) -2.4 mEq/L (-2.0 to +3.0); CO2 Tension 41.6 mmHg (35.0-45.0); Calcium, Ionized (arterial) 0.99 mmol/L (1.12-1.30); Carboxyhemoglobin (COHb) 0.8 gm% (0.0-3.0); Hemoglobin (Hb) 10.2 g/dL (14.0-18.0); O2 Tension (PaO2), arterial 190.6 mmHg (> 70.0); Potassium - ABG Lab 3.21 mmol/L (3.70-5.30); pH, Arterial 7.36 (7.35-7.45)
[2020-09-18 15:25] LABS: Puncture Site Arterial Line
[2020-09-18 15:26] LABS: Puncture Site Arterial Line
[2020-09-18 15:26] LABS: Puncture Site Arterial Line
[2020-09-18 15:27] LABS: Puncture Site Arterial Line
[2020-09-18 15:27] LABS: Puncture Site Arterial Line
== END 2020-09-10 14:35 | disposition expired | DRG 235 ==
LOC: SURG A 09-07 05:52 → CCU 09-07 10:33
PROVIDERS: ADMIT Thoracic Surgery (Cardiothoracic Vascular Surgery); ATTEND Thoracic Surgery (Cardiothoracic Vascular Surgery)
PROC: 02100Z9 Bypass Coronary Artery, One Artery from Left Internal Mammary, Open Approach (ICD-10-PCS; principal; 2020-09-07)
PROC: 06BP0ZZ Excision of Right Saphenous Vein, Open Approach (ICD-10-PCS; 2020-09-07)
PROC: 5A1221Z Performance of Cardiac Output, Continuous (ICD-10-PCS; 2020-09-07)
PROC: 5A1935Z Respiratory Ventilation, Less than 24 Consecutive Hours (ICD-10-PCS; 2020-09-07)
PROC: 02100AW Bypass Coronary Artery, One Artery from Aorta with Autologous Arterial Tissue, Open Approach (ICD-10-PCS; 2020-09-07)
PROC: 03BC0ZZ Excision of Left Radial Artery, Open Approach (ICD-10-PCS; 2020-09-07)
PROC: 30233N1 Transfusion of Nonautologous Red Blood Cells into Peripheral Vein, Percutaneous Approach (ICD-10-PCS; 2020-09-07)
PROC: B24BZZ4 Ultrasonography of Heart with Aorta, Transesophageal (ICD-10-PCS; 2020-09-07)
PROC: 5A09357 Assistance with Respiratory Ventilation, Less than 24 Consecutive Hours, Continuous Positive Airway Pressure (ICD-10-PCS; 2020-09-09)
PROC: 0BH17EZ Insertion of Endotracheal Airway into Trachea, Via Natural or Artificial Opening (ICD-10-PCS; 2020-09-10)
PROC: 5A1935Z Respiratory Ventilation, Less than 24 Consecutive Hours (ICD-10-PCS; 2020-09-10)
PROC: 5A12012 Performance of Cardiac Output, Single, Manual (ICD-10-PCS; 2020-09-10)
PROC: 3E033XZ Introduction of Vasopressor into Peripheral Vein, Percutaneous Approach (ICD-10-PCS; 2020-09-10)
PROC: 06HY33Z Insertion of Infusion Device into Lower Vein, Percutaneous Approach (ICD-10-PCS; 2020-09-10)
PROC: 04HY32Z Insertion of Monitoring Device into Lower Artery, Percutaneous Approach (ICD-10-PCS; 2020-09-10)
DX: I25.10 Atherosclerotic heart disease of native coronary artery without angina pectoris (principal); J95.821 Acute postprocedural respiratory failure; I26.99 Other pulmonary embolism without acute cor pulmonale; K72.00 Acute and subacute hepatic failure without coma; N17.0 Acute kidney failure with tubular necrosis; I82.431 Acute embolism and thrombosis of right popliteal vein; D68.9 Coagulation defect, unspecified; K56.7 Ileus, unspecified; E87.2 Acidosis; Z20.822 Contact with and (suspected) exposure to COVID-19; J44.9 Chronic obstructive pulmonary disease, unspecified; I12.9 Hypertensive chronic kidney disease with stage 1 through stage 4 chronic kidney disease, or unspecified chronic kidney disease; E78.00 Pure hypercholesterolemia, unspecified; N18.31 Chronic kidney disease, stage 3a; G47.33 Obstructive sleep apnea (adult) (pediatric); I73.9 Peripheral vascular disease, unspecified; M10.9 Gout, unspecified; R57.8 Other shock; E87.6 Hypokalemia; I46.9 Cardiac arrest, cause unspecified; E83.39 Other disorders of phosphorus metabolism; D63.1 Anemia in chronic kidney disease; E88.09 Other disorders of plasma-protein metabolism, not elsewhere classified; Z88.8 Allergy status to other drugs, medicaments and biological substances; Z87.891 Personal history of nicotine dependence; Z86.711 Personal history of pulmonary embolism; Z86.718 Personal history of other venous thrombosis and embolism
CPT/HCPCS: 36415; 36416; 36430; 36600; 71045; 71046; 80048; 82805; 83605; 83735; 84100; 85025; 85027; 85049; 85300; 85362; 85379; 85384; 85610; 85730; 86850; 86900; 86901; 87635; 93005; 93010; 93306; 94002; 94003; 94640; J0171; J0583; J0690; J1100; J1642; J1644; J1815; J1940; J2001; J2060; J2150; J2250; J2270; J2440; J2704; J2720; J3010; J3370; J3475; J3480; J3490; J7070; J7620; P9016; P9035; P9045; P9059; S0017; S0028; U0003; U0005